=== PATIENT | female | born 1975 | race Caucasian/White ===

== ENCOUNTER 2016-12-16 11:32 | Emergency (ER) | payer OTHER ==
--- NOTE | 2016-12-16 12:13 | ED ---
General Adult HPI - General Chief complaint: Psychiatric Symptoms Stated complaint: Anxiety Time Seen by Provider: 12/16/16 12:03 Source: patient, RN notes reviewed Mode of arrival: EMS Limitations: no limitations - History of Present Illness Initial comments: Patient is a pleasant 41-year-old female presenting to the emergency Department with anxiety depression and suicidal thoughts. Patient had a bed episode of panic attack this morning. Patient had thoughts of self-harm. Patient is concerned she may time her self when something like this happens. No homicidal thoughts. No hallucinations. Patient has been previously hospitalized. Patient had to change off of her Effexor secondary to blood pressure issues. Patient felt like she did much better while on Effexor. No physical complaints. - Related Data Home Medications Medication Instructions Recorded Confirmed ALPRAZolam [Xanax] 1 mg PO TID 12/16/16 12/16/16 Albuterol Nebulized [Ventolin 2.5 mg INHALATION RT-Q6H PRN 12/16/16 12/16/16 Nebulized] Atenolol [Tenormin] 50 mg PO BID 12/16/16 12/16/16 Cholecalciferol [Vitamin D3] 1,000 unit PO DAILY 12/16/16 12/16/16 DULoxetine HCL [Cymbalta] 20 mg PO BID 12/16/16 12/16/16 Ibuprofen [Motrin] 600 mg PO TID PRN 12/16/16 12/16/16 OLANZapine [ZyPREXA] 5 mg PO HS 12/16/16 12/16/16 amLODIPine [Norvasc] 5 mg PO BID 12/16/16 12/16/16 cloNIDine HCL [Catapres] 0.1 mg PO BID 12/16/16 12/16/16 Allergies Allergy/AdvReac Type Severity Reaction Status Date / Time peanut Allergy Anaphylaxis Verified 12/16/16 11:54 Review of Systems ROS Statement: Those systems with pertinent positive or pertinent negative responses have been documented in the HPI. ROS Other: All systems not noted in ROS Statement are negative. Constitutional: Denies: fever Eyes: Denies: eye pain ENT: Denies: ear pain Respiratory: Denies: cough Cardiovascular: Denies: chest pain Endocrine: Denies: fatigue Gastrointestinal: Denies: abdominal pain Genitourinary: Denies: urgency Musculoskeletal: Denies: back pain Skin: Denies: rash Neurological: Denies: headache Psychiatric: Reports: anxiety, depression, suicidal thoughts. Denies: auditory hallucinations, visual hallucinations, homicidal thoughts Past Medical History Past Medical History: Hypertension Additional Past Medical History / Comment(s): depression History of Any Multi-Drug Resistant Organisms: None Reported Past Surgical History: Bariatric Surgery Additional Past Surgical History / Comment(s): lap band Past Psychological History: Depression Smoking Status: Current every day smoker Past Alcohol Use History: Rare Past Drug Use History: None Reported General Exam Limitations: no limitations General appearance: alert, in no apparent distress Head exam: Present: atraumatic Eye exam: Present: normal appearance, PERRL ENT exam: Present: normal oropharynx Neck exam: Present: normal inspection Respiratory exam: Present: normal lung sounds bilaterally Cardiovascular Exam: Present: regular rate, normal rhythm GI/Abdominal exam: Present: soft. Absent: tenderness Extremities exam: Present: normal inspection Neurological exam: Present: alert Psychiatric exam: Present: depressed Skin exam: Present: normal color Course Vital Signs 12/16/16 12/16/16 12/16/16 11:55 12:41 13:34 Temperature 97.8 F Pulse Rate 73 70 72 Respiratory 18 18 18 Rate Blood Pressure 145/81 117/77 134/80 O2 Sat by Pulse 97 99 100 Oximetry 12/16/16 12/16/16 15:00 17:37 Temperature Pulse Rate 76 82 Respiratory 18 18 Rate Blood Pressure 128/84 159/112 O2 Sat by Pulse 97 99 Oximetry Medical Decision Making - Medical Decision Making Patient was seen by mental health services who did arrange for follow-up on Monday. Patient reexamined. Patient contracts for safety. - Lab Data Lab Results 12/16/16 Range/Units 11:49 Urine Opiates Screen Detected H (NotDetected) Ur Oxycodone Screen Not Detected (NotDetected) Urine Methadone Screen Not Detected (NotDetected) Ur Propoxyphene Screen Not Detected (NotDetected) Ur Barbiturates Screen Not Detected (NotDetected) U Tricyclic Antidepress Not Detected (NotDetected) Ur Phencyclidine Scrn Not Detected (NotDetected) Ur Amphetamines Screen Not Detected (NotDetected) U Methamphetamines Scrn Not Detected (NotDetected) U Benzodiazepines Scrn Detected H (NotDetected) Urine Cocaine Screen Not Detected (NotDetected) U Marijuana (THC) Screen Not Detected (NotDetected) Disposition Clinical Impression: Acute anxiety Disposition: HOME SELF-CARE Condition: Stable Instructions: Anxiety (ED), Depression (ED), Suicide Prevention for Adults (ED) Additional Instructions: Please follow-up with mental health services Monday as directed. Please also follow-up with your doctor in the beginning of the week. Return for thoughts of self-harm, worsening symptoms or other concerns. Referrals: Ramone Miles MD [Primary Care Provider] - 1-2 days Time of Disposition: 18:19
[2016-12-16 18:36] VITALS: BP 137/97; PULSE 75; RESP 16; TEMP 97.1
== END 2016-12-16 18:35 | disposition home or self-care (01) ==
LOC: EC 11:32
DX: F41.9 Anxiety disorder, unspecified (principal); F32.9 Major depressive disorder, single episode, unspecified; I10 Essential (primary) hypertension; R45.851 Suicidal ideations; F17.200 Nicotine dependence, unspecified, uncomplicated; Z91.010 Allergy to peanuts; Z79.899 Other long term (current) drug therapy
CPT/HCPCS: 80306; 82075; 99285

== ENCOUNTER 2016-12-18 12:59 | Inpatient (IN) | payer MEDICAID, OTHER ==
--- NOTE | 2016-12-18 13:23 | ED ---
General Adult HPI - General Chief complaint: Psychiatric Symptoms Stated complaint: MENTAL HEALTH Time Seen by Provider: 12/18/16 13:00 Source: patient, EMS, RN notes reviewed Mode of arrival: EMS Limitations: no limitations - History of Present Illness Initial comments: This is a 41-year-old female who presents emergency department with past medical history significant for anxiety and comes in today because she has been having panic attacks and feels suicidal. Patient wants to take sharp piece of glass and cut herself. Patient states the panic attacks eventually go away but they come back again she cannot handle having so many panic attacks every day and feeling as though she can make herself. Patient states she's fearful that if she stays home she could have panic attack she's actually going to act on it. Patient states she did drink a little alcohol today but not too much. Patient denies any physical complaints today. Patient denies any homicidal ideations. denies any illegal drug use. Patient states she's panic attack started after her fiance killed himself on Mother's Day. Patient denies headache patient denies numbness weakness. Patient denies chest pain difficulty breathing shortness of breath. Patient denies abdominal pain patient denies nausea vomiting diarrhea. Patient denies any recent fever chills or cough. - Related Data Home Medications Medication Instructions Recorded Confirmed ALPRAZolam [Xanax] 1 mg PO TID 12/16/16 12/18/16 Albuterol Nebulized [Ventolin 2.5 mg INHALATION RT-Q6H PRN 12/16/16 12/18/16 Nebulized] Atenolol [Tenormin] 50 mg PO BID 12/16/16 12/18/16 Cholecalciferol [Vitamin D3] 1,000 unit PO DAILY 12/16/16 12/18/16 DULoxetine HCL [Cymbalta] 20 mg PO BID 12/16/16 12/18/16 Ibuprofen [Motrin] 600 mg PO TID PRN 12/16/16 12/18/16 OLANZapine [ZyPREXA] 5 mg PO HS 12/16/16 12/18/16 amLODIPine [Norvasc] 5 mg PO BID 12/16/16 12/18/16 cloNIDine HCL [Catapres] 0.1 mg PO BID 12/16/16 12/18/16 EPINEPHrine [Epipen 2-[place]] 0.3 mg IM ONCE PRN 12/18/16 12/18/16 Allergies Allergy/AdvReac Type Severity Reaction Status Date / Time peanut Allergy Anaphylaxis Verified 12/18/16 13:23 Review of Systems ROS Statement: Those systems with pertinent positive or pertinent negative responses have been documented in the HPI. ROS Other: All systems not noted in ROS Statement are negative. Past Medical History Past Medical History: Hypertension Additional Past Medical History / Comment(s): depression History of Any Multi-Drug Resistant Organisms: None Reported Past Surgical History: Bariatric Surgery Additional Past Surgical History / Comment(s): lap band Past Psychological History: Depression Smoking Status: Current every day smoker Past Alcohol Use History: Rare Past Drug Use History: None Reported General Exam - General Exam Comments Initial Comments: GENERAL: Patient is well-developed and well-nourished. Patient is nontoxic and well- hydrated and is in no acute distress. ENT: Neck is soft and supple. No significant lymphadenopathy is noted. Oropharynx is clear. Moist mucous membranes. Neck has full range of motion without eliciting any pain. EYES: The sclera were anicteric and conjunctiva were pink and moist. Extraocular movements were intact and pupils were equal round and reactive to light. Eyelids were unremarkable. PULMONARY: Unlabored respirations. Good breath sounds bilaterally. No audible rales rhonchi or wheezing was noted. CARDIOVASCULAR: There is a regular rate and rhythm without any murmurs gallops or rubs. ABDOMEN: Soft and nontender with normal bowel sounds. SKIN: Skin is clear with no lesions or rashes and otherwise unremarkable. NEUROLOGIC: Patient is alert and oriented x3. Cranial nerves II through XII are grossly intact. Motor and sensory are also intact. Normal speech, volume and content. Symmetrical smile. MUSCULOSKELETAL: Normal extremities with adequate strength and full range of motion. LYMPHATICS: No significant lymphadenopathy is noted PSYCHIATRIC: Patient states she is depressed and wants to kill herself. Limitations: no limitations Course Vital Signs 12/18/16 13:00 Temperature 97.8 F Pulse Rate 72 Respiratory 18 Rate Blood Pressure 128/84 O2 Sat by Pulse 99 Oximetry Medical Decision Making - Lab Data Lab Results 12/18/16 Range/Units 13:25 Urine Opiates Screen Detected H (NotDetected) Ur Oxycodone Screen Not Detected (NotDetected) Urine Methadone Screen Not Detected (NotDetected) Ur Propoxyphene Screen Not Detected (NotDetected) Ur Barbiturates Screen Detected H (NotDetected) U Tricyclic Antidepress Not Detected (NotDetected) Ur Phencyclidine Scrn Not Detected (NotDetected) Ur Amphetamines Screen Not Detected (NotDetected) U Methamphetamines Scrn Not Detected (NotDetected) U Benzodiazepines Scrn Detected H (NotDetected) Urine Cocaine Screen Not Detected (NotDetected) U Marijuana (THC) Screen Not Detected (NotDetected) Disposition Clinical Impression: Depression, Suicidal ideation Disposition: ADMITTED IP TO THIS HOSP Referrals: Ramone Miles MD [Primary Care Provider] - 1-2 days Time of Disposition: 15:30
[2016-12-18 17:52] VITALS: BMI 32.1
[2016-12-18] MEDS ORDERED: MAG HYDROX/AL HYDROX/SIMETH 30 ML CUP PO PRN (18:32)
[2016-12-18] MEDS ORDERED: ACETAMINOPHEN TAB 325 MG TAB PO PRN (18:32)
[2016-12-18] MEDS ORDERED: MAGNESIUM HYDROXIDE 2,400 MG/10 ML CUP PO PRN (18:32)
[2016-12-18] MEDS ORDERED: ALBUTEROL NEBULIZED 2.5 MG/3 ML INHALATION PRN (18:39)
[2016-12-18] MEDS: NICOTINE 21MG/24HR PATCH TRANSDERM SCH (19:13)
[2016-12-18] MEDS: OLANZapine 2.5 MG TAB PO PRN (19:42)
[2016-12-18] MEDS: ATENOLOL 50 MG TAB PO SCH (21:35)
[2016-12-18] MEDS: amLODIPine 5 MG TAB PO SCH (21:36)
[2016-12-18] MEDS: DULoxetine HCL 20 MG CAPSULE.DR PO SCH (21:36)
[2016-12-18] MEDS: OLANZapine 5 MG TAB PO SCH (21:36)
[2016-12-18] MEDS: cloNIDine HCL 0.1 MG TAB PO SCH (21:36)
[2016-12-18] MEDS: IBUPROFEN 600 MG TAB PO PRN (22:46)
[2016-12-19] MEDS: DULoxetine HCL 20 MG CAPSULE.DR PO SCH (09:12)
[2016-12-19] MEDS: amLODIPine 5 MG TAB PO SCH ×2 (09:12→21:41)
[2016-12-19] MEDS: NICOTINE 21MG/24HR PATCH TRANSDERM SCH (09:12)
[2016-12-19] MEDS: cloNIDine HCL 0.1 MG TAB PO SCH ×2 (09:12→21:41)
[2016-12-19] MEDS: ATENOLOL 50 MG TAB PO SCH ×2 (09:12→21:41)
[2016-12-19] MEDS: hydrOXYzine PAMOATE 25 MG CAP PO PRN ×2 (09:14→16:04)
[2016-12-19 09:53] LABS: Basophils % (A) 1 %; CHCM 32.7; Eosinophils # (A) 0.3 k/uL (0-0.7); Eosinophils % (A) 3 %; HDW 2.12; HGB 13.3 gm/dL (11.4-16.0); Luc # (Auto) 0.16; Luc % (Auto) 2; Lymphocytes # (A) 2.1 k/uL (1.0-4.8); Lymphocytes % (A) 26 %; MCH 30.8 pg (25.0-35.0); MCHC 32.3 g/dL (31.0-37.0); MCV 95.2 fL (80.0-100.0); Mean Platelet Volume 6.8; Monocytes # (A) 0.4 k/uL (0-1.0); Monocytes % (A) 5 %; Neutrophils # (A) 4.9 k/uL (1.3-7.7); Neutrophils % (A) 63 %; RBC 4.31 m/uL (3.80-5.40); RDW 14.1 % (11.5-15.5); WBC 7.9 k/uL (3.8-10.6); WBC (Perox) 7.81
--- NOTE | 2016-12-19 10:27 | P.HP ---
Psychiatric H&P - . H&P Date: 12/19/16 History & Physical: DATE OF SERVICE: 12/19/2016 IDENTIFYING DATA: This patient is a 41-year-old single female who was admitted to the mental health unit through emergency room. HISTORY OF PRESENT ILLNESS: The patient presents with "my panic attacks were really bad, and i want to , i want to escape, i almost smashed a glass and cut my wrist. Patient gives a disjointed convoluted history, beginning in mid October after her fiance committed suicide and she found him. She was admitted to [facility] for 24 hours and then transferred to [facility] where she spent 9 days there. States that they stopped all of her meds and discharged her on phenobarbital, Effexor 75 mg and Zyprexa. She was discharged on December 02 and went to see her primary care provider who restarted Xanax and Cymbalta continued the Zyprexa. She states that she was making no sense when she was at [facility] and [facility] and she thinks that's why they put her on phenobarbital. States that when she was seeing Dr. Tang told her that she frequently was psychotic. She said that she saw him for roughly 8 years she also received counseling for 2 of those years at [facility], and then she states she thinks she was doing well enough that he let her see her PCP for medication. She also mentions something about that since he worked here at [facility] and that she worked here that there were some sort of conflict of interest. Patient states that everything began in mid October when Valentin her fianc of 17 years , killed himself, and that she found him. She says that he was a heroin addict , that he was extremely controlling of her, cut her off from her mother as well as her friends. States that she has panic attacks that are so severe that she wants to , that this time not only did she want to she wanted to kill her self and that was why she came here. Describes what she thinks is the psychotic episodes that Dr. Tang mentioned she will become frightened cannot understand what is happening she'll run into traffic, hide in the corner, and people tell her she is making no sense. She says this began again soon after Valentin killed himself. She is unable to give a reliable history of what medicines she is taking, but her UDS was positive for opiates phenobarbital benzodiazepines. She said she drank possibly a third of a shot of liquor. Took an extra xanax yesterday, ~1-2. PAST PSYCHIATRIC HISTORY: Just released on December 02, from [facility]. [facility] 1 night, then 9 days at [place], placed on or continued on phenobarbital , Zyprexa, venlafaxine Reports 3 previous stays here, 1 [facility] when 20, [place] x[facility].. Past medications, says she has been on everything, welbutrin, risperidal, seroquel, effexor, xanax for years. at 14 dxd with depresseion, started drinking, says panic attacks at age 6, burned self as teen ager, started up again 6 months ago, then stopped, last time in may. picks at her skin PAST MEDICAL HISTORY: HTN. ALLERGIES: peanut. CHEMICAL DEPENDENCY HISTORY: ETOH will drink 1/3 of a shot when having a panic attack, has been abstinent a number of years. Viocodin, not prescribed, gets from family member. oscar had heroin, cocaine, syringes in the house FAMILY PSYCHIATRIC HISTORY: Mother, anxiety runs on both sides. 2 uncles committed suicide, 1 shot himself he was roller stitcher became paranoid for years. Last Aug other uncle with severe etoh, cannabis use killed himself, she says he never left the house. FAMILY CHEMICAL DEPENDENCY HISTORY:mother etoh, and all her sibs have used etoh and other drugs but those alive today are sober, 2 aunts on xanax. LEGAL HISTORY: Denies current, one DUI >10 years ago, 1 night, has her license. SOCIAL HISTORY: Spent alot of time with , parents fought they when pt was 18, brother was 10, mother left them and pt had to take care of her brother. Not talking to mother because Valentin did not like her, father in [place], returning, she lives with him. He has no psych problems. Never , no children GED, 96 credits [employer]. 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 MENTAL STATUS EXAM: Patient alert and oriented 3, no eye contact, sat in chair turned away, poorly groomed in hospital attire. Speech normal volume, rate and production. Coherent, logical and goal directed thought process. No SALIMA, no FOI. [No TB/TW/ TI] Denied auditory and visual hallucinations. Denied paranoid ideation, delusions or IOR. Memory [grossly intact] Cognition average Mood dysphoric, affect flat, congruent with mood. + suicidal ideation, denies homicidal ideation. Insight none; Judgment impaired . STRENGTHS: Has a house to live, possibly a supportive father . WEAKNESSES: No insight, abusing opiates from family member IMPRESSIONS: 41-year-old female with long history of mental illness that she predominantly identifies as anxiety, description of possible micro-psychotic episodes much like a borderline personality, has early history of self injurious behavior, that seems to fluctuate dependent upon the stressors. Today there is no evidence of hallucinations, but her behavior was odd in that she sat to the side of the chair rather than facing forward. She appeared to be anxious. Need to consider a mood disorder possibly bipolar disorder that is the cause of the anxiety and it is not being treated with the Xanax. Has had multiple trials of medications its unclear if anything has helped other than by her report of Xanax helping. She is suicidal. Anxiety, unspecified, rule out panic disorder. Depression, unspecified, rule out bipolar disorder. Rule out personality disorder, cluster B Sedative hypnotic use, severe PLAN: . Continue inpatient psychiatric admission, for safety, diagnostic clarification, and treatment. Suicide precautions and every 15 minutes. Discontinue Xanax Start clonazepam 2 mg twice a day with goal to taper off. Vistaril 25 mg 4 times a day when necessary anxiety Zyprexa 2.5 mg 4 times a day when necessary severe anxiety/psychosis Continue Zyprexa 5 mg at bedtime. Clarify outpatient medications, if on Effexor will likely discontinue that due to its effects on blood pressure Discontinue Cymbalta. 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 Encouraged her to attend groups. Allergies Allergy/AdvReac Type Severity Reaction Status Date / Time peanut Allergy Anaphylaxis Verified 12/18/16 18:10 Vital Signs Temp 98.0 F 12/19/16 07:04 Pulse 60 12/19/16 07:04 Resp 18 12/19/16 07:04 BP 125/88 12/19/16 07:04 Pulse Ox 100 12/18/16 17:16 Intake & Output 12/18/16 12/19/16 12/19/16 18:59 06:59 18:59 Weight 87.5 kg 87.5 kg Laboratory Last Values Urine Opiates Screen Detected (NotDetected) H 12/18/16 13:25 Ur Oxycodone Screen Not Detected (NotDetected) 12/18/16 13:25 Urine Methadone Screen Not Detected (NotDetected) 12/18/16 13:25 Ur Propoxyphene Screen Not Detected (NotDetected) 12/18/16 13:25 Ur Barbiturates Screen Detected (NotDetected) H 12/18/16 13:25 U Tricyclic Antidepress Not Detected (NotDetected) 12/18/16 13:25 Ur Phencyclidine Scrn Not Detected (NotDetected) 12/18/16 13:25 Ur Amphetamines Screen Not Detected (NotDetected) 12/18/16 13:25 U Methamphetamines Scrn Not Detected (NotDetected) 12/18/16 13:25 U Benzodiazepines Scrn Detected (NotDetected) H 12/18/16 13:25 Urine Cocaine Screen Not Detected (NotDetected) 12/18/16 13:25 U Marijuana (THC) Screen Not Detected (NotDetected) 12/18/16 13:25 12/19/16 08:44 States she is not safe. States she is had a "massive panic attack." Patient states "I feel suicidal." "I want to because I want to escape (the panic attack).Patient was in [facility] November 27 - .States she took her off effexor, seroquel and xanax . End 12/19/16 09:28 12/19/16 10:08
[2016-12-19] MEDS: OLANZapine 2.5 MG TAB PO PRN (10:30)
[2016-12-19 10:35] LABS: ALT 29 U/L (9-52); AST 18 U/L (14-36); Alkaline Phosphatase 55 U/L (38-126); Anion Gap 12 mmol/L; Blood Urea Nitrogen 9 mg/dL (7-17); Calcium 9.3 mg/dL (8.4-10.2); Carbon Dioxide 21 mmol/L (22-30); Chloride 101 mmol/L (98-107); Glucose 106 mg/dL (74-99); Non-African American GFR(MDRD) >60 (>60 ml/min/1.73 sqM); Potassium 4.5 mmol/L (3.5-5.1); Sodium 134 mmol/L (137-145); Total Bilirubin 0.6 mg/dL (0.2-1.3); Total Protein 7.7 g/dL (6.3-8.2)
[2016-12-19] MEDS: clonazePAM 1 MG TAB PO SCH ×2 (10:36→21:41)
[2016-12-19] MEDS: SERTRALINE 50 MG TAB PO SCH (12:34)
[2016-12-19] MEDS: CHOLECALCIFEROL 1,000 UNIT TAB PO SCH (12:34)
[2016-12-19] MEDS: IBUPROFEN 600 MG TAB PO PRN ×2 (12:35→21:40)
[2016-12-19] MEDS: OLANZapine 5 MG TAB PO SCH (21:41)
[2016-12-20] MEDS: hydrOXYzine PAMOATE 25 MG CAP PO PRN (07:54)
[2016-12-20] MEDS: NICOTINE 21MG/24HR PATCH TRANSDERM SCH (08:52)
[2016-12-20] MEDS: ATENOLOL 50 MG TAB PO SCH ×2 (08:53→20:39)
[2016-12-20] MEDS: clonazePAM 1 MG TAB PO SCH ×2 (08:53→20:39)
[2016-12-20] MEDS: cloNIDine HCL 0.1 MG TAB PO SCH ×2 (08:53→20:39)
[2016-12-20] MEDS: SERTRALINE 50 MG TAB PO SCH (08:53)
[2016-12-20] MEDS: amLODIPine 5 MG TAB PO SCH ×2 (08:54→20:39)
--- NOTE | 2016-12-20 10:08 | CONS ---
DATE OF SERVICE: 12/18/2016 CHIEF COMPLAINT: Major depression. HISTORY OF PRESENT ILLNESS: This is another admission for this 41-year-old white female who has been longstanding patient. She is admitted through the psych service for major depression and suicidal thoughts. At the present time she cannot be located on the floor and her assessment will be delayed. PIEDAD
[2016-12-20] MEDS: IBUPROFEN 600 MG TAB PO PRN ×2 (10:23→17:24)
[2016-12-20] MEDS: CHOLECALCIFEROL 1,000 UNIT TAB PO SCH (13:02)
[2016-12-20] MEDS ORDERED: SERTRALINE 50 MG TAB PO ONE (15:34)
--- NOTE | 2016-12-20 15:45 | P.PN ---
Progress Note - Text mINTERVERAL HISTORY: Discussed patient at team treatment meeting, review of record, and met with patient. Patient was in her room doing a crossword puzzle came to the office. Patient apologizes for how she was yesterday, stating "I was just really in a bad state yesterday, I slept really well last night and I feels so much better today". Patient states that she feels better, she had some anxiety yesterday she took PRN olanzapine twice, and Vistaril twice. We discussed the reasoning for this medication that she had reported a previous doctor had told her that she was psychotic at certain times, she also endorsed not being able to understand what was going on during those times. She says she wants to get her mood better she is still dysphoric, but her anxiety is down today. Patient also reports that she feels that her memory is better, worried that the Xanax was causing her problems MENTAL STATUS EXAM:Patient alert and oriented 3, good eye contact, fair groomed in hospital attire/street clothing. Speech normal volume, rate and production. Coherent, logical and goal directed thought process. No SALIMA, no FOI. [No TB/TW/ TI] Denied auditory and visual hallucinations. Denied paranoid ideation, delusions or IOR. Memory grossly intact Cognition average Mood dysphoric, affect and strict did, congruent with mood. Denies suicidal ideation, denies homicidal ideation. Insight partial; Judgment grossly intact for treatment purposes PLAN: Continue psychiatric hospital admission, for safety, and treatment purposes. Suicide precautions every 15 minute checks Continue clonazepam 2 mg twice a day, tomorrow most likely will reduce by 50%. Increase Zoloft to 100 mg every morning area did Increase olanzapine/Zyprexa to 7.5 mg daily at bedtime Continue to use olanzapine/Zyprexa when necessary for anxiety if Vistaril does not provide relief Milieu therapy
[2016-12-20] MEDS: OLANZapine 2.5 MG TAB PO SCH (20:40)
[2016-12-21] MEDS: SERTRALINE 100 MG TAB PO SCH (08:22)
[2016-12-21] MEDS: ATENOLOL 50 MG TAB PO SCH ×2 (08:22→21:01)
[2016-12-21] MEDS: clonazePAM 1 MG TAB PO SCH (08:22)
[2016-12-21] MEDS: NICOTINE 21MG/24HR PATCH TRANSDERM SCH (08:22)
[2016-12-21] MEDS: amLODIPine 5 MG TAB PO SCH ×2 (08:22→21:01)
[2016-12-21] MEDS: cloNIDine HCL 0.1 MG TAB PO SCH ×2 (08:22→21:00)
[2016-12-21] MEDS: CHOLECALCIFEROL 1,000 UNIT TAB PO SCH (11:50)
[2016-12-21] MEDS: IBUPROFEN 600 MG TAB PO PRN ×2 (11:50→19:21)
[2016-12-21] MEDS ORDERED: OLANZapine 2.5 MG TAB PO PRN (12:37)
--- NOTE | 2016-12-21 13:22 | P.PN ---
Progress Note - Text INTERVERAL HISTORY: Discussed patient at team treatment meeting, review of record, and met with patient. Patient was in hallway seated on couch reading a book. Reports that she again slept well last night, still is feeling depressed but believes that this is a normal emotion considering the loss of her fianc. She reports that she begins to get anxious around 2 or 3:00 in the afternoon states that she requested PRN but was told that it was not ordered for her. She she was given Vistaril and reported it helped a bit but that yesterday afternoon and evening was very difficult. We reviewed the treatment plan, including the reduction of the benzodiazepine. She is anxious about this but is also hopeful as she looks back and sees how she was so dependent upon Xanax, and that when she was in the [facility] that she was completely unaware of what was going on due to her panic and possible withdrawal. She says she wants to get her mood better she is still dysphoric, but her anxiety is down today. Patient also reports that she feels that her memory is better, worried that the Xanax was causing her problems MENTAL STATUS EXAM:Patient alert and oriented 3, good eye contact, poorly groomed in hospital attire. Speech normal volume, rate and production. Coherent, logical and goal directed thought process. No SALIMA, no FOI. [No TB/TW/ TI] Denied auditory and visual hallucinations. Denied paranoid ideation, delusions or IOR. Memory grossly intact Cognition average Mood dysphoric, affect and strict did, congruent with mood. Denies suicidal ideation, denies homicidal ideation. Insight partial; Judgment grossly intact for treatment purposes PLAN: Continue psychiatric hospital admission, for safety, and treatment purposes. Suicide precautions every 15 minute checks Continue clonazepam 2 mg twice a day, tomorrow will reduce by 50%. Continue Zoloft to 100 mg every morning Continue olanzapine/Zyprexa to 7.5 mg daily at bedtime Zyprexa 1.25 mg by mouth PRN for anxiety every 8 hours if Vistaril does not provide relief Milieu therapy
[2016-12-21] MEDS: OLANZapine 2.5 MG TAB PO SCH (21:01)
[2016-12-22] MEDS: IBUPROFEN 600 MG TAB PO PRN ×2 (07:42→19:08)
[2016-12-22] MEDS ORDERED: clonazePAM 1 MG TAB PO SCH (09:00)
[2016-12-22] MEDS: NICOTINE 21MG/24HR PATCH TRANSDERM SCH (09:05)
[2016-12-22] MEDS: ATENOLOL 50 MG TAB PO SCH ×2 (09:06→20:13)
[2016-12-22] MEDS: SERTRALINE 100 MG TAB PO SCH (09:06)
[2016-12-22] MEDS: amLODIPine 5 MG TAB PO SCH ×2 (09:07→20:13)
[2016-12-22] MEDS: cloNIDine HCL 0.1 MG TAB PO SCH ×2 (09:07→20:13)
[2016-12-22] MEDS: hydrOXYzine PAMOATE 25 MG CAP PO PRN ×2 (09:53→16:14)
--- NOTE | 2016-12-22 12:16 | CONS ---
CHIEF COMPLAINT: Major depression. HISTORY OF PRESENT ILLNESS: This is a lady who came in because of major and serious depression. Her fiance had a drug problem and killed himself this spring. She has had other issues over her life and came to the point where she was becoming severely depressed and suicidal. REVIEW OF SYSTEMS: She denies any headache, neurologic problems, change in vision or hearing, cough, shortness of breath, chest pain, heart disease, abdominal pain, vomiting, diarrhea, melena, hematochezia, jaundice, renal disease, diabetes, etc. Past medical history, family history and personal and social histories reveal that she smokes heavily and has COPD for which she takes Advair. She has been on bupropion 150 mg twice a day, Vicodin 7.5 occasionally, Seroquel 50 mg at bedtime, vitamin D, ibuprofen, Bentyl, Effexor XR 150 mg once a day, ProAir, Xanax 1 mg t.i.d. p.r.n. She does not drink. PHYSICAL EXAMINATION: Blood pressure is 130/90 with a pulse of 90, respirations 16. She is afebrile. GENERAL: She appeared to be slightly overweight in no acute distress. Skin color is normal and the skin is warm and dry. Head, ears, eyes, nose, mouth and throat were normal. Chest is clear. Cardiac exam is normal. ABDOMEN: Soft, no masses. EXTREMITIES: Normal. IMPRESSION: 1. Major depression. 2. History of nicotine abuse. RECOMMENDATIONS: None. MTDD
[2016-12-22] MEDS: CHOLECALCIFEROL 1,000 UNIT TAB PO SCH (12:23)
--- NOTE | 2016-12-22 14:26 | P.PN ---
Progress Note - Text INTERVERAL HISTORY: Discussed patient at team treatment meeting, review of record, and met with patient. Staff report yesterday she was in groups. Today she was in bed @2:00, reports not feeling well, anxious, took vistaril this morning and then olanzapine an hour later, felt it helped a little with anxiety. Not able to attend group yet this afternoon. Reports when she was in the hospital prior to this that they kept her medicated with Haldol to the point that she could not attend groups, states she is feeling better here that she has the ability to attend to groups with the medications that were giving her. Reports more depression today, heard that her fiancee might of not killed himself but that he had fentanyl in his system. Although this helps her a bit knowing that he might not have killed himself it causes increase of her depression related to losing him. Thoughts of her own life, reason for living, need to keep living are now again more present to her Reports that her sleep remains good. Her anxiety is up but she is still willing to continue taking other medications then benzodiazepine. MENTAL STATUS EXAM:Patient alert and oriented 3, good eye contact, poorly groomed in hospital attire. Speech normal volume, rate and production. Coherent, logical and goal directed thought process. No SALIMA, no FOI. [No TB/TW/ TI] Denied auditory and visual hallucinations. Denied paranoid ideation, delusions or IOR. Memory grossly intact Cognition average Mood dysphoric, affect constricted, congruent with mood. Denies suicidal ideation is thinking about life, reasons for living, denies homicidal ideation. Insight partial; Judgment grossly intact for treatment purposes PLAN: Continue psychiatric hospital admission, for safety, and treatment purposes. Suicide precautions every 15 minute checks Continue clonazepam 1 mg twice a day. If she can tolerate would like to reduce on Monday to 0.5mg BID Continue Zoloft to 100 mg every morning Continue olanzapine/Zyprexa to 7.5 mg daily at bedtime Zyprexa 1.25 mg by mouth PRN for anxiety every 4hours if Vistaril does not provide relief Milieu therapy
[2016-12-22] MEDS: OLANZapine 2.5 MG TAB PO PRN (18:21)
[2016-12-22] MEDS: OLANZapine 2.5 MG TAB PO SCH (20:13)
[2016-12-23] MEDS: NICOTINE 21MG/24HR PATCH TRANSDERM SCH (08:43)
[2016-12-23] MEDS: cloNIDine HCL 0.1 MG TAB PO SCH ×2 (08:44→21:30)
[2016-12-23] MEDS: ATENOLOL 50 MG TAB PO SCH ×2 (08:44→21:30)
[2016-12-23] MEDS: CHOLECALCIFEROL 1,000 UNIT TAB PO SCH (08:44)
[2016-12-23] MEDS: amLODIPine 5 MG TAB PO SCH ×2 (08:44→21:30)
[2016-12-23] MEDS: SERTRALINE 100 MG TAB PO SCH (08:44)
[2016-12-23 10:34] LABS: Appearance,Urine Clear (Clear); Bilirubin,Urine Negative (Negative); Glucose,Urine (UA) Negative (Negative); Ketones,Urine Negative (Negative); Leukocyte Esterase,Urine Negative (Negative); Nitrite,Urine Negative (Negative); PH, Urine 7.5 (5.0-8.0); Protein,Urine Negative (Negative); Specific Gravity,Urine 1.002 (1.001-1.035); UA Billing (MACRO vs. MICRO) CHEM; Urobilinogen,Urine <2.0 mg/dL (<2.0)
[2016-12-23] MEDS: hydrOXYzine PAMOATE 25 MG CAP PO PRN (10:59)
[2016-12-23] MEDS: IBUPROFEN 600 MG TAB PO PRN ×2 (11:00→22:19)
[2016-12-23] MEDS: OLANZapine 2.5 MG TAB PO PRN (12:06)
[2016-12-23] MEDS ORDERED: clonazePAM 1 MG TAB PO STA (15:21)
[2016-12-23] MEDS: OLANZapine 5 MG TAB PO SCH ×2 (16:59→21:30)
--- NOTE | 2016-12-23 17:36 | P.PN ---
Progress Note - Text DATE OF SERVICE: 12/23/2016 CHIEF COMPLAINT: The patient was admitted due to hopeless feelings, thoughts of suicide with impulse to cut her wrist, panic symptoms. She has acute stress response and grief relating to recent of fianc. INTERVAL HISTORY: The patient has been doing fair. She continues to struggle with her mood though she also has insight that much of what she is experiencing likely relates to grief and acute stress response related to of her fianc . She says she should be letting out her feelings. She attends groups and is appropriate. She does show struggles with mood in groups as well. She has been sleeping fairly well at night which she says is a big plus for her as she has chronic sleep disorder. Her Klonopin dose has been tapered. He says that she is very focused on staying off of Klonopin and any other habit-forming medications. She acknowledges a history of substance use problems. She hasn't had change in her general health. She tolerates her psychotropic medications. MENTAL STATUS EXAM: Patient had a disheveled appearance. Contact was fair. Psychomotor activity was somewhat restless. He answered questions appropriately. She was spontaneous and interactive. Her affect was anxious. Mood depressed. She was moderately distressed. ASSESSMENT: I will continue the current diagnosis and treatment plan. They her Klonopin will go down to a total daily dose of 1.5 mg. Tomorrow she will go down to 0.5 mg twice a day. Monday she will go down to 0.25 mg 3 times a day. I had an extensive discussion with the patient regarding withdrawal issues including the time course of withdrawal, what she is likely to experience through early withdrawal and means of managing withdrawal symptoms. I will increase her Zyprexa to 5 mg 3 times a day with the aim to help her reduce physiologic stress response as it relates to benzodiazepine withdrawal. We will continue to focus on stabilization and discharge planning.
[2016-12-23] MEDS ORDERED: clonazePAM 0.5 MG TAB PO ONE (21:00)
[2016-12-24] MEDS: NICOTINE 21MG/24HR PATCH TRANSDERM SCH (08:49)
[2016-12-24] MEDS: amLODIPine 5 MG TAB PO SCH ×2 (08:49→20:53)
[2016-12-24] MEDS: ATENOLOL 50 MG TAB PO SCH ×2 (08:49→20:53)
[2016-12-24] MEDS: cloNIDine HCL 0.1 MG TAB PO SCH ×2 (08:50→20:53)
[2016-12-24] MEDS: CHOLECALCIFEROL 1,000 UNIT TAB PO SCH (08:50)
[2016-12-24] MEDS: SERTRALINE 100 MG TAB PO SCH (08:50)
[2016-12-24] MEDS: clonazePAM 0.5 MG TAB PO SCH ×2 (08:50→20:53)
[2016-12-24] MEDS: OLANZapine 5 MG TAB PO SCH ×2 (08:50→20:53)
--- NOTE | 2016-12-24 12:33 | P.PN ---
Progress Note - Text Interval history: Patient seen in [facility] today for Dr. Camacho. She states that the Zyprexa at 5 mg 3 times a day is too sedating for her during the day. She verbalizes that her mood overall is feeling better but still some ups and downs and she is feeling kind of hopeless. Mental status exam: She is alert and cooperative with the interview. Her speech is fluent, not rapid or pressured. Thought processes organized. Her mood she describes overall is better but she is still feeling some ups and downs. She denies any thoughts of harm to self or others but relays some hopelessness. She is not verbalize any hallucinations or karthik delusions. She does not show any agitation. Plan: The Zyprexa will be changed to 2.5 mg in the a.m. and in the afternoon and then 5 mg at bedtime to minimize any daytime sedation. We'll continue to cover this patient for Dr. Camacho through the weekend. We'll continue to monitor her mood and monitor for any medication side effects.
[2016-12-24] MEDS: IBUPROFEN 600 MG TAB PO PRN ×2 (12:53→20:53)
[2016-12-24] MEDS: OLANZapine 2.5 MG TAB PO SCH (12:54)
[2016-12-24] MEDS: OLANZapine 2.5 MG TAB PO PRN (19:39)
[2016-12-25] MEDS: NICOTINE 21MG/24HR PATCH TRANSDERM SCH (09:04)
[2016-12-25] MEDS: SERTRALINE 100 MG TAB PO SCH (09:04)
[2016-12-25] MEDS: ATENOLOL 50 MG TAB PO SCH ×2 (09:04→20:59)
[2016-12-25] MEDS: cloNIDine HCL 0.1 MG TAB PO SCH ×2 (09:04→20:59)
[2016-12-25] MEDS: OLANZapine 2.5 MG TAB PO SCH ×2 (09:04→13:54)
[2016-12-25] MEDS: clonazePAM 0.5 MG TAB PO SCH ×2 (09:05→21:01)
[2016-12-25] MEDS: amLODIPine 5 MG TAB PO SCH ×2 (09:06→20:59)
[2016-12-25] MEDS: CHOLECALCIFEROL 1,000 UNIT TAB PO SCH (11:11)
[2016-12-25] MEDS: hydrOXYzine PAMOATE 25 MG CAP PO PRN (11:11)
--- NOTE | 2016-12-25 14:22 | P.PN ---
Progress Note - Text Interval history: Patient seen in cross coverage today for Dr. Camacho. She states that she did sleep better last night. She states that she would like to keep the Zyprexa at the lower dose. She does describe feeling depressed today. She seems to relay her anxiety level is manageable. Mental status exam: She is alert and cooperative with the interview. Her speech is fluent, not rapid or pressured. Thought processes are organized. Her mood she describes is depressed today. She denies any thoughts of harm to self or others. She denies any hallucinations. She does not make any delusional statements. There is no agitation present. Plan: We'll maintain current psychotropic medications. We'll monitor for any medication side effects monitor her ongoing response. Dr. Camacho will resume care this patient starting tomorrow.
[2016-12-25] MEDS: IBUPROFEN 600 MG TAB PO PRN ×2 (14:31→21:01)
[2016-12-25] MEDS: OLANZapine 2.5 MG TAB PO PRN (19:04)
[2016-12-25] MEDS: OLANZapine 5 MG TAB PO SCH (20:59)
[2016-12-26] MEDS: ATENOLOL 50 MG TAB PO SCH ×2 (08:09→21:30)
[2016-12-26] MEDS: amLODIPine 5 MG TAB PO SCH ×2 (08:09→21:30)
[2016-12-26] MEDS: NICOTINE 21MG/24HR PATCH TRANSDERM SCH (08:09)
[2016-12-26] MEDS: cloNIDine HCL 0.1 MG TAB PO SCH ×2 (08:10→21:30)
[2016-12-26] MEDS: clonazePAM 0.5 MG TAB PO SCH (08:10)
[2016-12-26] MEDS: OLANZapine 2.5 MG TAB PO SCH ×2 (08:10→16:03)
[2016-12-26] MEDS: SERTRALINE 100 MG TAB PO SCH (08:10)
[2016-12-26] MEDS: IBUPROFEN 600 MG TAB PO PRN ×2 (09:21→22:44)
[2016-12-26] MEDS: hydrOXYzine PAMOATE 25 MG CAP PO PRN ×2 (09:22→14:49)
[2016-12-26] MEDS: OLANZapine 2.5 MG TAB PO PRN ×2 (10:50→17:42)
[2016-12-26] MEDS: CHOLECALCIFEROL 1,000 UNIT TAB PO SCH (12:22)
--- NOTE | 2016-12-26 14:36 | P.PN ---
Progress Note - Text INTERVERAL HISTORY: Patient was discussed in treatment team meeting, review of record, met with patient. Staff reports that patient has been having significant issues related to anxiety , isolating, and mood swings. Patient reports that she's not feeling very well, anxious, paranoid, fear of having a panic attack. States that she had initially complained about being too sleepy with the dose of olanzapine at bedtime and it was changed to have her take it 2 times during the day but doesn't think that's helpful now. Describes her paranoia as fear of having another panic attack. We discussed the fact that the change in her medications will be difficult but that the additional olanzapine should help to deal with some of it, but not all of it. She says she understood and that the doctor before made told her that it could be up to 6 months before she'll feel back to normal. Reports she did not sleep well last night. Reports she has suicidal thoughts. Still agreeing to have the benzodiazepines discontinued she took 1 this morning and will discontinue tonight. MENTAL STATUS EXAM: Patient is alert and cooperative, frequently looking down at the floor, appearing anxious. Denies voices. Thoughts of suicide without a plan. PLAN: Continue inpatient psychiatric admission, safety purposes and treatment. Increase olanzapine 10 mg at bedtime. Discontinue to daytime doses. Continue 1.25 mg every 4 hours as needed. Discussed possible discharge tomorrow, patient agreeable.
[2016-12-26] MEDS ORDERED: OLANZapine 10 MG TAB PO SCH (21:00)
[2016-12-27 06:45] VITALS: TEMP 97.6
[2016-12-27] MEDS ORDERED: clonazePAM 1 MG TAB PO SCH (09:00)
[2016-12-27] MEDS: ATENOLOL 50 MG TAB PO SCH (09:32)
[2016-12-27] MEDS: cloNIDine HCL 0.1 MG TAB PO SCH (09:32)
[2016-12-27] MEDS: SERTRALINE 100 MG TAB PO SCH (09:32)
[2016-12-27] MEDS: amLODIPine 5 MG TAB PO SCH (09:32)
[2016-12-27] MEDS: NICOTINE 21MG/24HR PATCH TRANSDERM SCH (09:32)
[2016-12-27 09:36] VITALS: BP 131/77; PULSE 98; RESP 18
[2016-12-27] MEDS: CHOLECALCIFEROL 1,000 UNIT TAB PO SCH (12:27)
[2016-12-27] MEDS: IBUPROFEN 600 MG TAB PO PRN (12:30)
[2016-12-27] MEDS: hydrOXYzine PAMOATE 25 MG CAP PO PRN (14:21)
--- NOTE | 2016-12-27 14:29 | P.DS ---
Providers Date of admission: 12/18/16 16:40 Expected date of discharge: 12/27/16 Attending physician: Queenie Camacho MD Consults: 12/18/16 18:32 Consult Physician Routine Consulting Provider: Ramone Miles Consult Reason/Comments: H and P and medical management Do you want consulting provider notified?: Yes Primary care physician: Ramone Miles Hospital Course: BRIEF ADMISSION HISTORY: She was admitted to the mental health unit through the emergency room on a voluntary admission. She brought herself to the hospital due to having panic attacks she reports that when she has a panic attack she becomes confused unable to think and then this leads to paranoia and then suicide ideation initially she gave a convoluted history that was hard to understand and follow. But eventually it was discovered that she had been just recently discharged from psychiatric hospital for 9 days. She was suicidal and depressed at that point due to her fianc committing suicide and she found him. According to her they stopped all of her medications including Xanax and she was discharged on phenobarbital Zyprexa and Effexor after discharge she saw her primary care who restarted Xanax and Cymbalta and Zyprexa. HOSPITAL COURSE: As stated above it was difficult to understand her her thought process was a bit disorganized but her primary complaint was just anxiety paranoia and suicidal ideation. We switched her Xanax to clonazepam with the ultimate goal of being able to stop benzodiazepines. Her past history did support the use of an atypical antipsychotic due to the confusion and paranoia that she reports associated to panic attacks. It's unclear what comes first after about 2 days she began to appear less anxious and less paranoid we did begin a slow taper of benzodiazepine but over the weekend she began to sink again into more paranoia with some suicidal ideation returning. We discontinued Effexor due to her high blood pressure. We also discontinued Cymbalta. We started sertraline/Zoloft 100 mg for depression We restarted her clonazepam 1 mg twice a day. We raised her Zyprexa to equal the amount of when necessary's that she was taking during the day, she is now taking 10 mg at bedtime. We also used Vistaril for anxiety. She has vague periods of suicide but no plan. She is stable for discharge. ADMISSION DIAGNOSES Anxiety, unspecified, rule out panic disorder Depression, unspecified rule out bipolar disorder Rule out personality disorder, cluster B Sedative hypnotic use, severe DISCHARGE DIAGNOSES Anxiety disorder, unspecified Depression, unspecified Sedative hypnotic use, severe PLAN: Discharge today, father will hot die picker and there will be a family meeting at that time. I discussed with patient the concern of using benzodiazepine long-term/chronic, she also has a history of using opiates although I believe those are prescribed. She was agreeable to continue the slow titration of benzodiazepine. Recommend that she stay on clonazepam 1 mg twice a day for 2 weeks, then reduce dosage by 0.5 for 2 weeks, another reduction by 0.5 for 2 weeks and then reduce by 0.25 mg for 2 weeks and continue to reduce until no longer taking. She agreed Olanzapine/Zyprexa 10 mg daily at bedtime Hydroxyzine/Vistaril 25 mg 4 times a day when necessary severe anxiety [facility] appointment. Pertinent Studies: nonr Procedures: nonr Patient Condition at Discharge: Stable Plan - Discharge Summary New Discharge Prescriptions: New clonazePAM [KlonoPIN] 1 mg PO BID #60 tab hydrOXYzine PAMOATE [Vistaril] 25 mg PO Q6HR PRN #90 cap PRN Reason: Anxiety OLANZapine [ZyPREXA] 10 mg PO HS #30 tab Sertraline [Zoloft] 100 mg PO DAILY #30 tab Continue cloNIDine HCL [Catapres] 0.1 mg PO BID Cholecalciferol [Vitamin D3] 1,000 unit PO DAILY amLODIPine [Norvasc] 5 mg PO BID Ibuprofen [Motrin] 600 mg PO TID PRN PRN Reason: Pain Atenolol [Tenormin] 50 mg PO BID Albuterol Nebulized [Ventolin Nebulized] 2.5 mg INHALATION RT-Q6H PRN PRN Reason: Shortness Of Breath EPINEPHrine [Epipen 2-[place]] 0.3 mg IM ONCE PRN PRN Reason: Anaphylaxis Discontinued OLANZapine [ZyPREXA] 5 mg PO HS DULoxetine HCL [Cymbalta] 20 mg PO BID ALPRAZolam [Xanax] 1 mg PO TID Discharge Medication List Albuterol Nebulized [Ventolin Nebulized] 2.5 mg INHALATION RT-Q6H PRN 12/16/16 [ History] Atenolol [Tenormin] 50 mg PO BID 12/16/16 [History] Cholecalciferol [Vitamin D3] 1,000 unit PO DAILY 12/16/16 [History] Ibuprofen [Motrin] 600 mg PO TID PRN 12/16/16 [History] amLODIPine [Norvasc] 5 mg PO BID 12/16/16 [History] cloNIDine HCL [Catapres] 0.1 mg PO BID 12/16/16 [History] EPINEPHrine [Epipen 2-[place]] 0.3 mg IM ONCE PRN 12/18/16 [History] OLANZapine [ZyPREXA] 10 mg PO HS #30 tab 12/27/16 [Rx] Sertraline [Zoloft] 100 mg PO DAILY #30 tab 12/27/16 [Rx] clonazePAM [KlonoPIN] 1 mg PO BID #60 tab 12/27/16 [Rx] hydrOXYzine PAMOATE [Vistaril] 25 mg PO Q6HR PRN #90 cap 12/27/16 [Rx] Follow up Appointment(s)/Referral(s): [facility] [Outside] - 12/28/16 3:00 pm (Ramone Devries MD [Primary Care Provider] - 1-2 days
== END 2016-12-27 17:26 | disposition home or self-care (01) | DRG 880 ==
LOC: EC 12:59 → 3MHU 16:40
PROVIDERS: ADMIT Psychiatry & Neurology Addiction Medicine; ATTEND Psychiatry & Neurology Addiction Medicine
PROC: HZ2ZZZZ Detoxification Services for Substance Abuse Treatment (ICD-10-PCS; principal; 2016-12-18)
DX: F41.0 Panic disorder [episodic paroxysmal anxiety] (principal); R45.851 Suicidal ideations; F22 Delusional disorders; F13.239 Sedative, hypnotic or anxiolytic dependence with withdrawal, unspecified; F11.10 Opioid abuse, uncomplicated; G47.9 Sleep disorder, unspecified; F60.9 Personality disorder, unspecified; F32.9 Major depressive disorder, single episode, unspecified; F41.9 Anxiety disorder, unspecified; J44.9 Chronic obstructive pulmonary disease, unspecified; E66.3 Overweight; I10 Essential (primary) hypertension; F17.200 Nicotine dependence, unspecified, uncomplicated; Z91.5 Personal history of self-harm; Z79.899 Other long term (current) drug therapy; Z91.010 Allergy to peanuts; Z71.3 Dietary counseling and surveillance; Z98.84 Bariatric surgery status; Z79.1 Long term (current) use of non-steroidal anti-inflammatories (NSAID); Z79.891 Long term (current) use of opiate analgesic; Z79.51 Long term (current) use of inhaled steroids; Z81.1 Family history of alcohol abuse and dependence; Z81.3 Family history of other psychoactive substance abuse and dependence; Z81.8 Family history of other mental and behavioral disorders; Z71.51 Drug abuse counseling and surveillance of drug abuser; Z63.4 Disappearance and death of family member
CPT/HCPCS: 80053; 80306; 81003; 81025; 82075; 84443; 85025; 99285

== ENCOUNTER 2016-12-27 18:56 | Emergency (ER) | payer OTHER ==
[2016-12-27 19:22] VITALS: RESP 18; TEMP 97.3
[2016-12-27] MEDS ORDERED: amLODIPine 5 MG TAB PO STA (19:35)
[2016-12-27] MEDS ORDERED: ATENOLOL 50 MG TAB PO STA (19:35)
[2016-12-27 19:57] LABS: Appearance,Urine Clear (Clear); Bilirubin,Urine Negative (Negative); Glucose,Urine (UA) Negative (Negative); Ketones,Urine Negative (Negative); Leukocyte Esterase,Urine Negative (Negative); Nitrite,Urine Negative (Negative); PH, Urine 6.5 (5.0-8.0); Protein,Urine Negative (Negative); Specific Gravity,Urine 1.001 (1.001-1.035); UA Billing (MACRO vs. MICRO) CHEM; Urobilinogen,Urine <2.0 mg/dL (<2.0)
[2016-12-27] MEDS: cloNIDine HCL 0.1 MG TAB PO STA ×2 (20:11→22:45)
--- NOTE | 2016-12-27 20:15 | ED ---
General Adult HPI - General Chief complaint: Psychiatric Symptoms Stated complaint: Panic Attack Time Seen by Provider: 12/27/16 19:07 Source: patient Mode of arrival: ambulatory Limitations: no limitations - History of Present Illness Initial comments: Patient is a 41-year-old female with extensive psychiatric history who presents to the emergency department this evening for evaluation of panic attack and thoughts of self-harm. I hospitalized in our mental health unit from December 18 until approximately 6 PM today at which time after a family meeting she was discharged home. Patient reports she was discharged around 6 PM, upon walking to the parking lot and sitting in her brother's car she began having a panic attack. She states she took 1 Klonopin and remained in the car for 1 hour but feels as though she is very paranoid, she is having thoughts of harming herself and doesn't feel safe going home. Patient does have a past medical history of self-harm including self-inflicted mascorro. Today she states she has no specific plan to hurt herself but is scared that if she is left alone or if she goes home she will hurt herself. Patient's recent psychiatric history is very complicated she was hospitalized at an outside hospital in November at which time she was weaned off of benzodiazepines and narcotic medications. She reports her psychiatric medications were changed. She was discharged home for a short while and then came to our facility for reevaluation. Patient states there've been multiple changes to her medications in the past 2 months and during this time she's also been diagnosed with hypertension and started on multiple antihypertensive medications. Patient states that she was previously treated with Effexor which was very effective for her. She states that she has no longer on this and feels like she should've stayed on that medication. - Related Data Home Medications Medication Instructions Recorded Confirmed Albuterol Nebulized [Ventolin 2.5 mg INHALATION RT-Q6H PRN 12/16/16 12/27/16 Nebulized] Atenolol [Tenormin] 50 mg PO BID 12/16/16 12/27/16 Cholecalciferol [Vitamin D3] 1,000 unit PO DAILY 12/16/16 12/27/16 Ibuprofen [Motrin] 600 mg PO TID PRN 12/16/16 12/27/16 amLODIPine [Norvasc] 5 mg PO BID 12/16/16 12/27/16 cloNIDine HCL [Catapres] 0.1 mg PO BID 12/16/16 12/27/16 EPINEPHrine [Epipen 2-[place]] 0.3 mg IM ONCE PRN 12/18/16 12/27/16 Previous Rx's Medication Instructions Recorded OLANZapine [ZyPREXA] 10 mg PO HS #30 tab 12/27/16 Sertraline [Zoloft] 100 mg PO DAILY #30 tab 12/27/16 clonazePAM [KlonoPIN] 1 mg PO BID #60 tab 12/27/16 hydrOXYzine PAMOATE [Vistaril] 25 mg PO Q6HR PRN #90 cap 12/27/16 Allergies Allergy/AdvReac Type Severity Reaction Status Date / Time peanut Allergy Anaphylaxis Verified 12/27/16 19:18 Review of Systems ROS Statement: Those systems with pertinent positive or pertinent negative responses have been documented in the HPI. ROS Other: All systems not noted in ROS Statement are negative. Constitutional: Denies: fever, chills Eyes: Denies: vision change ENT: Denies: throat pain, congestion Respiratory: Denies: cough, dyspnea Cardiovascular: Reports: palpitations. Denies: chest pain Endocrine: Denies: fatigue Gastrointestinal: Reports: nausea. Denies: abdominal pain, vomiting Genitourinary: Denies: urgency, dysuria, abnormal menses Musculoskeletal: Denies: back pain Skin: Denies: rash, lesions Neurological: Denies: headache Psychiatric: Reports: anxiety, depression, other (Thoughts of self-harm). Denies: auditory hallucinations, visual hallucinations, homicidal thoughts, suicidal thoughts Past Medical History Past Medical History: Hypertension Additional Past Medical History / Comment(s): depression History of Any Multi-Drug Resistant Organisms: None Reported Past Surgical History: Bariatric Surgery Additional Past Surgical History / Comment(s): lap band Past Anesthesia/Blood Transfusion Reactions: No Reported Reaction Past Psychological History: Anxiety, Depression Smoking Status: Current every day smoker Past Alcohol Use History: Daily Past Drug Use History: None Reported, Prescription Drug Abuse General Exam Limitations: no limitations General appearance: alert, anxious, obese, other (Hirsute) Head exam: Present: atraumatic, normocephalic, normal inspection Eye exam: Present: normal appearance, PERRL, EOMI. Absent: scleral icterus, conjunctival injection, periorbital swelling ENT exam: Present: normal exam, mucous membranes moist Neck exam: Present: normal inspection. Absent: tenderness, meningismus, lymphadenopathy Respiratory exam: Present: normal lung sounds bilaterally. Absent: respiratory distress, wheezes, rales, rhonchi, stridor Cardiovascular Exam: Present: regular rate, normal rhythm, normal heart sounds. Absent: systolic murmur, diastolic murmur, rubs, gallop, clicks GI/Abdominal exam: Present: soft, normal bowel sounds. Absent: distended, tenderness, guarding, rebound, rigid Rectal exam: Present: deferred Extremities exam: Present: normal inspection, full ROM, normal capillary refill. Absent: tenderness, pedal edema, joint swelling, calf tenderness Back exam: Present: normal inspection Neurological exam: Present: alert, oriented X3, CN II-XII intact Psychiatric exam: Present: depressed, agitated, anxious Skin exam: Present: warm, dry, intact, normal color. Absent: rash Course Vital Signs 12/27/16 12/27/16 19:10 22:51 Temperature 97.3 F L Pulse Rate 77 71 Respiratory 18 Rate Blood Pressure 160/104 164/105 O2 Sat by Pulse 98 Oximetry Medical Decision Making - Medical Decision Making Patient was seen and evaluated, vital signs were reviewed - patient was noted to be hypertensive History was obtained from patient and review of medical record Labs were ordered Patient's home oral antihypertensives were ordered Mental health unit was notified of patient's presence in the emergency department Patient's blood pressure improved prior to oral medications, Norvasc and Lopressor were given, Catapres was held due to improvement in blood pressure Patient was evaluated by the psychiatry social director. Restates the patient vehemently denied any thoughts of self-harm or suicide. Patient was insistent that she was having a panic attack. dry house worker recommended that the patient be discharged home as there is no indication for hospitalization for an acute anxiety attack, especially considering that the patient just underwent a 9 day hospitalization was evaluated and cleared by psychiatry earlier today. She advised that the patient should follow-up with her psychiatrist as scheduled tomorrow. This plan was discussed with the patient who is agreeable to discharge home with and for follow-up with psychiatry as scheduled tomorrow. All questions pertaining to care were answered to the best my ability and the patient was discharged home in condition. Upon preparing to leave the ER patient states she was beginning to feel panicked again, however she did not have any thoughts of self-harm or suicide. I advised the patient to remain calm and take slow deep breaths while she was feeling this anxiety. Patient was able to do so and was discharged home. - Lab Data Lab Results 12/27/16 12/27/16 Range/Units 19:34 19:34 Urine Color Colorless Urine Appearance Clear (Clear) Urine pH 6.5 (5.0-8.0) Ur Specific [place] 1.001 (1.001-1.035) Urine Protein Negative (Negative) Urine Glucose (UA) Negative (Negative) Urine Ketones Negative (Negative) Urine Blood Negative (Negative) Urine Nitrite Negative (Negative) Urine Bilirubin Negative (Negative) Urine Urobilinogen <2.0 (<2.0) mg/dL Ur Leukocyte Esterase Negative (Negative) Urine HCG, Qual Not Detected (Not Detectd) Disposition Clinical Impression: Anxiety disorder Disposition: HOME SELF-CARE Condition: Good Instructions: Panic Attack (ED) Referrals: Ramone Miles MD [Primary Care Provider] - 1-2 days
[2016-12-27 22:52] VITALS: BP 164/105; PULSE 71
== END 2016-12-27 22:54 | disposition home or self-care (01) ==
LOC: EC 18:56
DX: F41.9 Anxiety disorder, unspecified (principal); F17.200 Nicotine dependence, unspecified, uncomplicated; I10 Essential (primary) hypertension; Z79.899 Other long term (current) drug therapy; Z91.010 Allergy to peanuts
CPT/HCPCS: 81003; 81025; 82075; 99284

== ENCOUNTER 2017-01-11 12:30 | Emergency (ER) | payer OTHER ==
[2017-01-11 12:39] VITALS: BP 110/69; PULSE 64; RESP 18; TEMP 97.6
--- NOTE | 2017-01-11 12:49 | ED ---
General Adult HPI - General Chief complaint: Psychiatric Symptoms Stated complaint: Mental Health Time Seen by Provider: 01/11/17 12:40 Source: patient, EMS, RN notes reviewed Mode of arrival: EMS Limitations: no limitations - History of Present Illness Initial comments: Patient 41-year-old female who presents emergency room today with chief complaint of increased paranoia and suicidal ideation. Patient does admit that she was recently admitted discharged home. She states this is that time she's not been out of her house much. She does admit that she's having increased thoughts of paranoia. Does admit that she's having increased thoughts of hurting herself. Denies any specific plan. Patient denies any homicidal thoughts or plans. She denies any other physical complaints here in the emergency room. Patient denies any recent fever, chills, shortness of breath, chest pain, back pain, abdominal pain, nausea or vomiting, numbness or tingling , dysuria or hematuria, constipation or diarrhea, headaches or visual changes, or any other complaints. - Related Data Home Medications Medication Instructions Recorded Confirmed Albuterol Nebulized [Ventolin 2.5 mg INHALATION RT-Q6H PRN 12/16/16 01/11/17 Nebulized] Atenolol [Tenormin] 50 mg PO BID 12/16/16 01/11/17 Cholecalciferol [Vitamin D3] 1,000 unit PO DAILY 12/16/16 01/11/17 Ibuprofen [Motrin] 600 mg PO TID PRN 12/16/16 01/11/17 amLODIPine [Norvasc] 5 mg PO BID 12/16/16 01/11/17 cloNIDine HCL [Catapres] 0.1 mg PO BID 12/16/16 01/11/17 EPINEPHrine [Epipen 2-[place]] 0.3 mg IM ONCE PRN 12/18/16 01/11/17 Previous Rx's Medication Instructions Recorded OLANZapine [ZyPREXA] 10 mg PO HS #30 tab 12/27/16 Sertraline [Zoloft] 100 mg PO DAILY #30 tab 12/27/16 clonazePAM [KlonoPIN] 1 mg PO BID #60 tab 12/27/16 hydrOXYzine PAMOATE [Vistaril] 25 mg PO Q6HR PRN #90 cap 12/27/16 Allergies Allergy/AdvReac Type Severity Reaction Status Date / Time peanut Allergy Anaphylaxis Verified 01/11/17 13:06 Review of Systems ROS Statement: Those systems with pertinent positive or pertinent negative responses have been documented in the HPI. ROS Other: All systems not noted in ROS Statement are negative. Past Medical History Past Medical History: Hypertension Additional Past Medical History / Comment(s): depression History of Any Multi-Drug Resistant Organisms: None Reported Past Surgical History: Bariatric Surgery Additional Past Surgical History / Comment(s): lap band Past Anesthesia/Blood Transfusion Reactions: No Reported Reaction Past Psychological History: Anxiety, Depression Smoking Status: Current every day smoker Past Alcohol Use History: Daily Past Drug Use History: None Reported, Prescription Drug Abuse General Exam - General Exam Comments Initial Comments: General: The patient is awake and alert, in no distress, and does not appear acutely ill. Eye: Pupils are equal, round and reactive to light, extra-ocular movements are intact. No nystagmus. There is normal conjunctiva bilaterally. No signs of icterus. Ears, nose, mouth and throat: There are moist mucous membranes and no oral lesions. Neck: The neck is supple, there is no tenderness or JVD. Cardiovascular: There is a regular rate and rhythm. No murmur, rub or gallop is appreciated. Respiratory: Lungs are clear to auscultation, respirations are non-labored, breath sounds are equal. No wheezes, stridor, rales, or rhonchi. Musculoskeletal: Normal ROM, no tenderness. Strength 5/5. Sensation intact. Pulses equal bilaterally 2+. Neurological: A&O x 3. CN II-XII intact, There are no obvious motor or sensory deficits. Coordination appears grossly intact. Speech is normal. Skin: Skin is warm and dry and no rashes or lesions are noted. Psychiatric: Cooperative, appropriate mood & affect, normal judgment. Limitations: no limitations Course Vital Signs 01/11/17 12:35 Temperature 97.6 F Pulse Rate 64 Respiratory 18 Rate Blood Pressure 110/69 O2 Sat by Pulse 98 Oximetry Medical Decision Making - Medical Decision Making Patient's been examined here in the emergency room by mental health. They recommend that patient can be discharged home. She has no suicidal thoughts or plans. [facility] will be following up with the patient tomorrow at her home to take her to her appointment. - Lab Data Lab Results 08/02/17 08/02/17 Range/Units 12:43 12:43 Urine HCG, Qual Not Detected (Not Detectd) Urine Opiates Screen Not Detected (NotDetected) Ur Oxycodone Screen Not Detected (NotDetected) Urine Methadone Screen Not Detected (NotDetected) Ur Propoxyphene Screen Not Detected (NotDetected) Ur Barbiturates Screen Not Detected (NotDetected) U Tricyclic Antidepress Not Detected (NotDetected) Ur Phencyclidine Scrn Not Detected (NotDetected) Ur Amphetamines Screen Not Detected (NotDetected) U Methamphetamines Scrn Not Detected (NotDetected) U Benzodiazepines Scrn Not Detected (NotDetected) Urine Cocaine Screen Not Detected (NotDetected) U Marijuana (THC) Screen Not Detected (NotDetected) Disposition Clinical Impression: Depression Disposition: HOME SELF-CARE Condition: Good Instructions: Depression (ED) Additional Instructions: Please follow-up with community mental health as discussed here in the emergency room. Please return here to the emergency room if the symptoms increase or worsen or for any other concerns. Referrals: Ramone Miles MD [Primary Care Provider] - 1-2 days Time of Disposition: 14:34
== END 2017-01-11 14:54 | disposition home or self-care (01) ==
LOC: EC 12:30
DX: F32.9 Major depressive disorder, single episode, unspecified (principal); I10 Essential (primary) hypertension; F17.200 Nicotine dependence, unspecified, uncomplicated; Z91.010 Allergy to peanuts; Z79.899 Other long term (current) drug therapy
CPT/HCPCS: 80306; 81025; 82075; 99285

== ENCOUNTER → 2020-12-28 | Outpatient (CLI) | payer OTHER ==
[2020-12-28 15:32] LABS: Anisocytosis Slight; Basophils % (A) 1 %; Eosinophils # (A) 0.3 k/uL (0-0.7); Eosinophils % (A) 3 %; HGB 13.4 gm/dL (11.4-16.0); Lymphocytes # (A) 2.4 k/uL (1.0-4.8); Lymphocytes % (A) 27 %; MCH 30.7 pg (25.0-35.0); MCHC 32.7 g/dL (31.0-37.0); Mean Platelet Volume 7.1; Monocytes # (A) 0.5 k/uL (0-1.0); Monocytes % (A) 6 %; Neutrophils # (A) 5.3 k/uL (1.3-7.7); Neutrophils % (A) 60 %; Platelet Count 440 k/uL (150-450); RBC 4.37 m/uL (3.80-5.40); RDW 16.3 % (11.5-15.5); WBC 8.8 k/uL (3.8-10.6)
[2020-12-28 15:45] LABS: ALT 45 U/L (4-34); AST 42 U/L (14-36); African American GFR (CKD) >90 (>60 ml/min/1.73 sqM); Albumin 4.2 g/dL (3.5-5.0); Alkaline Phosphatase 105 U/L (38-126); Anion Gap 10 mmol/L; Blood Urea Nitrogen 10 mg/dL (7-17); Calcium 9.3 mg/dL (8.4-10.2); Carbon Dioxide 22 mmol/L (22-30); Chloride 107 mmol/L (98-107); Glucose 96 mg/dL (74-99); Non-African American GFR(CKD) >90 (>60 ml/min/1.73 sqM); Potassium 4.3 mmol/L (3.5-5.1); Sodium 139 mmol/L (137-145); Total Bilirubin 0.2 mg/dL (0.2-1.3); Total Protein 7.6 g/dL (6.3-8.2)
== END | disposition home or self-care (01) ==
LOC: LABPAT 14:27
PROVIDERS: ATTEND Surgery
DX: Z01.812 Encounter for preprocedural laboratory examination (principal); Z01.810 Encounter for preprocedural cardiovascular examination
CPT/HCPCS: 36415; 80053; 85025

== ENCOUNTER → 2020-12-28 | Outpatient (CLI) | payer OTHER ==
[2020-12-28 14:07] VITALS: RESP 18; TEMP 98; BMI 49.0
[2020-12-28 14:21] VITALS: BP 120/101; PULSE 134
--- NOTE | 2020-12-28 16:02 | P.HPBAR ---
Bariatric H&P - History & Physicial H&P Date: 12/28/20 History & Physicial: Visit/CC: lap band follow up Patient initial contact: Initial weight: Initial weight in pounds: Height: 5 ft 6 in Initial BMI: Last weight: Current weight: 137.801 kg Current weight in pounds: 303.80 Current BMI: 49.0 [place] body weight (based on NIH guidelines): 58.967 kg Excess body weight loss: The patient is a 45 year-old F who presents for Bariatric Assessment. Patient presents today for follow-up. She is up and seen several years. She has a malfunctioning LAP-BAND port. She is requesting a port replaced. Past Medical History Past Medical History: Hypertension, Sleep Apnea/CPAP/BIPAP Additional Past Medical History / Comment(s): depression. sciatic pain. History of Any Multi-Drug Resistant Organisms: None Reported Past Surgical History: Bariatric Surgery Additional Past Surgical History / Comment(s): lap band Past Anesthesia/Blood Transfusion Reactions: No Reported Reaction Additional Past Anesthesia/Blood Transfusion Reaction / Comm: per patient - "hits harder than normal people" and "takes longer to wake up" Smoking Status: Current every day smoker Surgical - Exam Vital Signs Temp Pulse Resp BP 98 F 122 H 18 156/116 12/28/20 13:55 12/28/20 13:55 12/28/20 13:55 12/28/20 13:55 - General well developed, well nourished, no distress - Eyes PERRL - ENT normal pinna - Neck no masses - Respiratory normal expansion - Cardiovascular Rhythm: regular - Abdomen Abdomen: soft, non tender Bariatric Assessment & Plan Plan: Patient was scheduled for LAP-BAND port placement. Bariatric Checklist Checklist: Plan: Checklist: EGD: 1. Hiatal hernia: 2. H. Pylori: HgbA1c: Vitamin D: Smoking: Current every day smoker Primary care physician referral: Dr. Miles Psychiatry clearance: Cardiology clearance: Sleep study: Diet journal: VTE risk score: VTE risk level: Rehab needs at discharge:
== END | disposition home or self-care (01) ==
LOC: BARWHC3 13:00
PROVIDERS: ATTEND Surgery
DX: E66.01 Morbid (severe) obesity due to excess calories (principal); K95.09 Other complications of gastric band procedure; I10 Essential (primary) hypertension; G47.33 Obstructive sleep apnea (adult) (pediatric); F17.200 Nicotine dependence, unspecified, uncomplicated; Z68.42 Body mass index [BMI] 45.0-49.9, adult; Z98.84 Bariatric surgery status; Z95.828 Presence of other vascular implants and grafts
CPT/HCPCS: 99211

== ENCOUNTER → 2021-02-10 | Outpatient (CLI) | payer OTHER ==
[2021-02-10 11:29] LABS: ALT 29 U/L (4-34); AST 28 U/L (14-36); African American GFR (CKD) >90 (>60 ml/min/1.73 sqM); Albumin 3.9 g/dL (3.5-5.0); Alkaline Phosphatase 93 U/L (38-126); Anion Gap 9 mmol/L; Blood Urea Nitrogen 10 mg/dL (7-17); Calcium 9.4 mg/dL (8.4-10.2); Carbon Dioxide 22 mmol/L (22-30); Chloride 106 mmol/L (98-107); Glucose 118 mg/dL (74-99); Non-African American GFR(CKD) >90 (>60 ml/min/1.73 sqM); Potassium 4.3 mmol/L (3.5-5.1); Sodium 137 mmol/L (137-145); Total Bilirubin 0.1 mg/dL (0.2-1.3); Total Protein 7.3 g/dL (6.3-8.2)
[2021-02-10 11:36] LABS: Anisocytosis Slight; Basophils # (A) 0.1 k/uL (0-0.2); Basophils % (A) 1 %; Eosinophils # (A) 0.4 k/uL (0-0.7); Eosinophils % (A) 4 %; HCT 42.4 % (34.0-46.0); HGB 14.1 gm/dL (11.4-16.0); Lymphocytes # (A) 2.7 k/uL (1.0-4.8); Lymphocytes % (A) 26 %; MCH 31.9 pg (25.0-35.0); MCHC 33.2 g/dL (31.0-37.0); MCV 96.1 fL (80.0-100.0); Mean Platelet Volume 7.2; Monocytes # (A) 0.5 k/uL (0-1.0); Monocytes % (A) 5 %; Neutrophils # (A) 6.3 k/uL (1.3-7.7); Neutrophils % (A) 62 %; Platelet Count 545 k/uL (150-450); RBC 4.41 m/uL (3.80-5.40); RDW 16.1 % (11.5-15.5); WBC 10.2 k/uL (3.8-10.6)
== END | disposition home or self-care (01) ==
LOC: LABPAT 10:43
PROVIDERS: ATTEND Surgery
DX: Z01.812 Encounter for preprocedural laboratory examination (principal)
CPT/HCPCS: 80053; 85025

== ENCOUNTER 2021-02-17 08:29 | Day surgery (SDC) | payer OTHER ==
[2021-02-09 13:35] VITALS: BMI 50.7
[~2021-02-17 08:29] MED LIST: DEXAMETHASONE SOD PHOSPHATE 4 MG/ML 1 ML VIAL IV ONE; HYDROmorphone 0.5 MG/0.5 ML SYRINGE IVP PRN; LACTATED RINGERS 1,000 ML IV SCH; LIDOCAINE 1% (10MG/ML) FOR IV START INTRADERMA PRN; MIDAZOLAM 2 MG/2 ML VIAL IV PRN; ONDANSETRON 4 MG/2 ML VIAL IVP ONE; ceFAZolin 3 GM in SODIUM CHLORIDE 0.9% 100 ML IVPB PRN
--- NOTE | 2021-02-17 09:40 | P.GSHP ---
History of Present Illness H&P Date: 02/17/21 Chief Complaint: LAP-BAND port malfunction This a 45-year-old female who presents today for LAP-BAND port placement. Patient's had issues her LAP-BAND port. His malfunction of her LAP-BAND port. Past Medical History Past Medical History: Hypertension, Sleep Apnea/CPAP/BIPAP Additional Past Medical History / Comment(s): Sciatica. No CPAP use. History of Any Multi-Drug Resistant Organisms: None Reported Past Surgical History: Bariatric Surgery Additional Past Surgical History / Comment(s): Lap band. Past Anesthesia/Blood Transfusion Reactions: No Reported Reaction Additional Past Anesthesia/Blood Transfusion Reaction / Comment(s): Per patient - "hits me harder than normal people" and "takes longer to wake up." Past Psychological History: Anxiety, Depression, PTSD Additional Psychological History / Comment(s): Argophobia. Smoking Status: Current every day smoker Past Alcohol Use History: None Reported Additional Past Alcohol Use History / Comment(s): Smokes 1 PPD X30 yrs. Past Drug Use History: Prescription Drug Abuse Additional Drug Use History / Comment(s): Hx Prescription Drug Abuse 4 yrs ago. - Past Family History Mother Family Medical History: No Reported History Medications and Allergies Home Medications Medication Instructions Recorded Confirmed Type Albuterol Inhaler [Ventolin Hfa 1 puff INHALATION DIRECTED PRN 12/28/20 02/09/21 History Inhaler] Citalopram Hydrobromide [CeleXA] 40 mg PO QAM 12/28/20 02/09/21 History EPINEPHrine (Auto Inject) [Epipen] 0.3 mg IM ONCE PRN 12/28/20 02/09/21 History Ibuprofen [Motrin] 800 mg PO QID 12/28/20 02/09/21 History OLANZapine 7.5 mg PO HS 12/28/20 02/09/21 History cloNIDine HCL [Catapres] 0.1 mg PO BID 12/28/20 02/09/21 History clonazePAM [KlonoPIN] 1 mg PO BID 12/28/20 02/09/21 History Ergocalciferol [Vitamin D2 (1250 1,250 mcg PO Q14D 02/09/21 02/09/21 History Mcg = [id number] Iu)] Allergies Allergy/AdvReac Type Severity Reaction Status Date / Time peanut Allergy Anaphylaxis Verified 02/17/21 09:31 Surgical - Exam Vital Signs Temp Pulse Resp BP Pulse Ox 97.0 F L 133 H 15 138/81 98 02/17/21 09:36 02/17/21 09:36 02/17/21 09:36 02/17/21 09:36 02/17/21 09:36 - General well developed, well nourished, no distress - Eyes PERRL - ENT normal pinna - Neck no masses - Respiratory normal expansion - Cardiovascular Rhythm: regular - Abdomen Abdomen: soft, non tender Assessment and Plan Assessment: LAP-BAND port function. We'll perform laparoscopic replacement.
[2021-02-17] MEDS ORDERED: HEPARIN SODIUM,PORCINE/PF 5,000 UNIT/0.5 ML SYRINGE SQ ONE (09:51)
[2021-02-17] MEDS ORDERED: ENOXAPARIN 40 MG/0.4 ML SYRINGE SQ STA (09:53)
[2021-02-17] MEDS ORDERED: ROCURONIUM 10 MG/ML (5 ML VIAL) IV ONE (10:07)
[2021-02-17] MEDS ORDERED: LIDOCAINE 1% INJ 10MG/ML (20 ML MDV) ONE (10:07)
[2021-02-17] MEDS ORDERED: NEOSTIGMINE 1 MG/ML 10 ML VIAL ONE (10:07)
[2021-02-17] MEDS ORDERED: PROPOFOL 10 MG/ML 20 ML VIAL IV ONE (10:07)
[2021-02-17] MEDS ORDERED: HEPARIN SODIUM,PORCINE 5,000 UNIT/ML 1 ML VIAL ONE (10:07)
[2021-02-17] MEDS ORDERED: KETOROLAC 15 MG/ML 1 ML VIAL ONE (10:07)
[2021-02-17] MEDS ORDERED: SUCCINYLCHOLINE CHLORIDE VIAL 200 MG/10 ML VIAL IV ONE (10:07)
[2021-02-17] MEDS ORDERED: fentaNYL (PF) 50 MCG/ML 2 ML AMP ONE (10:07)
[2021-02-17] MEDS ORDERED: GLYCOPYRROLATE 0.2 MG/ML 2 ML VIAL ONE (10:07)
[2021-02-17] MEDS ORDERED: KETAMINE 10 MG/ML 20 ML VIAL ONE (10:07)
[2021-02-17] MEDS ORDERED: BUPIVACAINE (PF) 0.5% 30 ML VIAL SQ ONE (10:41)
--- NOTE | 2021-02-17 11:16 | P.OP ---
Date of Procedure: 02/17/21 Preoperative Diagnosis: LAP-BAND port malfunction Postoperative Diagnosis: LAP-BAND port malfunction Morbid obesity, BMI 51 Procedure(s) Performed: Laparoscopic removal and replacement of LAP-BAND port Anesthesia: MAC Surgeon: Maurice Mohan Estimated Blood Loss (ml): 10 Pathology: none sent Condition: stable Disposition: PACU Description of Procedure: The patient's placed on the operative table in the supine position. She received general trach tube anesthesia. Her abdomen was prepped and draped usual fashion. The skin was incised at the LAP-BAND port. Using blunt and sharp dissection with cautery the LAP-BAND port was dissected free. Fracture the PEG tube the LAP-BAND port. The PEG tube was then cut. Next a 5 mm optical trochars placed in the patient's. Cavity. Inflation laps was placed. Cavity. Next a 10 mm trochars placed in the right epigastric position. The PEG tube was then brought up through the 10 mm trocar site. The trochars withdrawn. The new LAP-BAND port was connected to the PEG tube and then secured to the fascia using 0 Nurolon suture. The LAP-BAND was inflated with 1 mL of saline. The incision sites are cefepime status. No bleeding seen. Skin was closed interrupted 3-0 Monocryl suture. Dermabond was applied. Patient top she will was sent to recovery room in stable condition.
[2021-02-17 11:22] VITALS: TEMP 98.8
[2021-02-17 12:52] VITALS: BP 142/98; PULSE 91; RESP 18
== END 2021-02-17 13:13 | disposition home or self-care (01) ==
LOC: OR 08:29
PROVIDERS: ATTEND Surgery
DX: Z46.51 Encounter for fitting and adjustment of gastric lap band (principal); E66.01 Morbid (severe) obesity due to excess calories; Z68.43 Body mass index [BMI] 50.0-59.9, adult; F41.9 Anxiety disorder, unspecified; F32.9 Major depressive disorder, single episode, unspecified; F17.210 Nicotine dependence, cigarettes, uncomplicated; F40.00 Agoraphobia, unspecified; F19.10 Other psychoactive substance abuse, uncomplicated; Z79.899 Other long term (current) drug therapy; Z91.010 Allergy to peanuts; I10 Essential (primary) hypertension; J45.909 Unspecified asthma, uncomplicated; G47.30 Sleep apnea, unspecified; K21.9 Gastro-esophageal reflux disease without esophagitis
CPT/HCPCS: 81025; 43659; C1751; J2250; J0330; J1644; J1100; J2710; J0690; J2405; J2001; J3010; J1885; J2704; J1170

== ENCOUNTER → 2021-02-22 | Outpatient (CLI) | payer OTHER ==
[2021-02-22 14:57] VITALS: BP 149/101; PULSE 73; RESP 18; TEMP 99; BMI 49.8
--- NOTE | 2021-03-09 10:49 | P.HPBAR ---
Bariatric H&P - History & Physicial H&P Date: 02/22/21 History & Physicial: Visit/CC: follow up / lap band Patient initial contact: Initial weight: Initial weight in pounds: Height: 5 ft 6 in Initial BMI: Last weight: Current weight: 140.16 kg Current weight in pounds: 309.00 Current BMI: 49.8 [place] body weight (based on NIH guidelines): 58.967 kg Excess body weight loss: The patient is a 45 year-old F who presents for Bariatric Assessment. Patient presents today for laparoscopic and follow-up. She is requesting a fill. Past Medical History Past Medical History: Hypertension, Sleep Apnea/CPAP/BIPAP Additional Past Medical History / Comment(s): Sciatica. No CPAP use. History of Any Multi-Drug Resistant Organisms: None Reported Past Surgical History: Bariatric Surgery Additional Past Surgical History / Comment(s): Lap band. Past Anesthesia/Blood Transfusion Reactions: No Reported Reaction Additional Past Anesthesia/Blood Transfusion Reaction / Comm: Per patient - "hits me harder than normal people" and "takes longer to wake up." Past Psychological History: Anxiety, Depression, PTSD Additional Psychological History / Comment(s): Argophobia. Smoking Status: Current every day smoker Past Alcohol Use History: None Reported Additional Past Alcohol Use History / Comment(s): Smokes 1 PPD X30 yrs. Past Drug Use History: Prescription Drug Abuse Additional Drug Use History / Comment(s): Hx Prescription Drug Abuse 4 yrs ago. - Past Family History Mother Family Medical History: No Reported History Surgical - Exam Vital Signs Temp Pulse Resp BP 99 F 73 18 149/101 02/22/21 14:54 02/22/21 14:54 02/22/21 14:54 02/22/21 14:54 - General well developed, well nourished, no distress - Eyes PERRL - ENT normal pinna - Cardiovascular Rhythm: regular - Abdomen Abdomen: soft, non tender Bariatric Assessment & Plan Plan: Patient's LAP-BAND port was adjusted. She has a malfunctioning LAP-BAND port. She will need to be scheduled for LAP-BAND port replacement. Bariatric Checklist Checklist: Plan: Checklist: EGD: 1. Hiatal hernia: 2. H. Pylori: HgbA1c: Vitamin D: Smoking: Current every day smoker Primary care physician referral: Dr. Miles Psychiatry clearance: Cardiology clearance: Sleep study: Diet journal: VTE risk score: VTE risk level: Rehab needs at discharge:
== END | disposition home or self-care (01) ==
LOC: BARWHC3 14:33
PROVIDERS: ATTEND Surgery
DX: K95.09 Other complications of gastric band procedure (principal)
CPT/HCPCS: 99211

== ENCOUNTER → 2021-03-29 | Outpatient (CLI) | payer OTHER ==
[2021-03-29 15:22] VITALS: BP 153/99; PULSE 84; RESP 16; TEMP 97.8; BMI 50.6
--- NOTE | 2021-03-29 15:53 | P.HPBAR ---
Bariatric H&P - History & Physicial H&P Date: 03/29/21 History & Physicial: Visit/CC: band fill Patient initial contact: Initial weight: 142.428 kg Initial weight in pounds: 314.00 Height: 5 ft 6 in Initial BMI: 50.6 Last weight: Current weight: 142.428 kg Current weight in pounds: 314.00 Current BMI: 50.6 [place] body weight (based on NIH guidelines): 58.967 kg Excess body weight loss: 0.0% The patient is a 45 year-old F who presents for Bariatric Assessment. Patient rents today for LAP-BAND adjustment. She currently is hungry requesting a fill. Past Medical History Past Medical History: Hypertension, Sleep Apnea/CPAP/BIPAP Additional Past Medical History / Comment(s): Sciatica. No CPAP use. History of Any Multi-Drug Resistant Organisms: None Reported Past Surgical History: Bariatric Surgery Additional Past Surgical History / Comment(s): Lap band. Past Anesthesia/Blood Transfusion Reactions: No Reported Reaction Additional Past Anesthesia/Blood Transfusion Reaction / Comm: Per patient - "hits me harder than normal people" and "takes longer to wake up." Past Psychological History: Anxiety, Depression, PTSD Additional Psychological History / Comment(s): Argophobia. Smoking Status: Current every day smoker Past Alcohol Use History: None Reported Additional Past Alcohol Use History / Comment(s): Smokes 1 PPD X30 yrs. Past Drug Use History: Prescription Drug Abuse Additional Drug Use History / Comment(s): Hx Prescription Drug Abuse 4 yrs ago. - Past Family History Mother Family Medical History: No Reported History Surgical - Exam Vital Signs Temp Pulse Resp BP 97.8 F 84 16 153/99 03/29/21 15:19 03/29/21 15:19 03/29/21 15:19 03/29/21 15:19 - General well developed, well nourished, no distress - Eyes PERRL - ENT normal pinna, normal nares - Neck no masses - Respiratory normal expansion - Cardiovascular Rhythm: regular - Abdomen Abdomen: soft, non tender Bariatric Assessment & Plan Plan: Patient LAP-BAND. She had 2 mL added to her band. She was able to drink water without difficulty. She'll follow-up in 4 weeks. Bariatric Checklist Checklist: Plan: Checklist: EGD: 1. Hiatal hernia: 2. H. Pylori: HgbA1c: Vitamin D: Smoking: Current every day smoker Primary care physician referral: Dr. Miles Psychiatry clearance: Cardiology clearance: Sleep study: Diet journal: VTE risk score: VTE risk level: Rehab needs at discharge:
== END | disposition home or self-care (01) ==
LOC: BARWHC3 14:28
PROVIDERS: ATTEND Surgery
DX: E66.01 Morbid (severe) obesity due to excess calories (principal); Z68.43 Body mass index [BMI] 50.0-59.9, adult
CPT/HCPCS: 99212

== ENCOUNTER → 2021-04-02 | Outpatient (CLI) | payer OTHER ==
[2021-04-02 10:04] VITALS: BP 148/99; PULSE 98; RESP 16; TEMP 98.5; BMI 48.1
--- NOTE | 2021-04-02 10:34 | P.HPBAR ---
Bariatric H&P - History & Physicial H&P Date: 04/02/21 History & Physicial: Visit/CC: band f/u Patient initial contact: Initial weight: 142.428 kg Initial weight in pounds: 314.00 Height: 5 ft 6 in Initial BMI: 50.6 Last weight: Current weight: 135.171 kg Current weight in pounds: 298.00 Current BMI: 48.1 [place] body weight (based on NIH guidelines): 58.967 kg Excess body weight loss: 8.6% The patient is a 45 year-old F who presents for Bariatric Assessment. Patient has complaints of dysphagia. She is troubled. Past Medical History Past Medical History: Hypertension, Sleep Apnea/CPAP/BIPAP Additional Past Medical History / Comment(s): Sciatica. No CPAP use. History of Any Multi-Drug Resistant Organisms: None Reported Past Surgical History: Bariatric Surgery Additional Past Surgical History / Comment(s): Lap band. Past Anesthesia/Blood Transfusion Reactions: No Reported Reaction Additional Past Anesthesia/Blood Transfusion Reaction / Comm: Per patient - "hits me harder than normal people" and "takes longer to wake up." Smoking Status: Current every day smoker - Past Family History Mother Family Medical History: No Reported History Surgical - Exam Vital Signs Temp Pulse Resp BP 98.5 F 98 16 148/99 04/02/21 09:53 04/02/21 09:53 04/02/21 09:53 04/02/21 09:53 - General well developed, well nourished, no distress - Eyes PERRL - ENT normal pinna - Neck no masses - Respiratory normal expansion - Cardiovascular Rhythm: regular - Abdomen Abdomen: soft, non tender Bariatric Assessment & Plan Plan: Patient LAP-BAND was adjusted. She had 2 mL LAP-BAND. She'll follow-up in 3 days for a refill of her band system Bariatric Checklist Checklist: Plan: Checklist: EGD: 1. Hiatal hernia: 2. H. Pylori: HgbA1c: Vitamin D: Smoking: Current every day smoker Primary care physician referral: Dr. Miles Psychiatry clearance: Cardiology clearance: Sleep study: Diet journal: VTE risk score: VTE risk level: Rehab needs at discharge:
== END | disposition home or self-care (01) ==
LOC: BARWHC3 08:38
PROVIDERS: ATTEND Surgery
DX: Z45.89 Encounter for adjustment and management of other implanted devices (principal)
CPT/HCPCS: 99212

== ENCOUNTER → 2021-04-12 | Outpatient (CLI) | payer OTHER ==
[2021-04-12 16:21] VITALS: BP 148/113; PULSE 123; RESP 16; TEMP 98.6; BMI 51.5
--- NOTE | 2021-04-22 19:42 | P.HPBAR ---
Bariatric H&P - History & Physicial H&P Date: 04/12/21 History & Physicial: Visit/CC: band adj Patient initial contact: Initial weight: 142.428 kg Initial weight in pounds: 314.00 Height: 5 ft 6 in Initial BMI: 50.6 Last weight: Current weight: 144.696 kg Current weight in pounds: 319.00 Current BMI: 51.5 [place] body weight (based on NIH guidelines): 58.967 kg Excess body weight loss: The patient is a 45 year-old F who presents for Bariatric Assessment. Patient presents today for LAP-BAND adjustment. She is requesting a fill her band. Past Medical History Past Medical History: Hypertension, Sleep Apnea/CPAP/BIPAP Additional Past Medical History / Comment(s): Sciatica. No CPAP use. History of Any Multi-Drug Resistant Organisms: None Reported Past Surgical History: Bariatric Surgery Additional Past Surgical History / Comment(s): Lap band. Past Anesthesia/Blood Transfusion Reactions: No Reported Reaction Additional Past Anesthesia/Blood Transfusion Reaction / Comm: Per patient - "hits me harder than normal people" and "takes longer to wake up." Past Psychological History: Anxiety, Depression, PTSD Additional Psychological History / Comment(s): Argophobia. Smoking Status: Current every day smoker Past Alcohol Use History: None Reported Additional Past Alcohol Use History / Comment(s): Smokes 1 PPD X30 yrs. Past Drug Use History: Prescription Drug Abuse Additional Drug Use History / Comment(s): Hx Prescription Drug Abuse 4 yrs ago. - Past Family History Mother Family Medical History: No Reported History Surgical - Exam Vital Signs Temp Pulse Resp BP 98.6 F 123 H 16 148/113 04/12/21 15:51 04/12/21 15:51 04/12/21 15:51 04/12/21 15:51 - General well developed, well nourished, no distress - Eyes PERRL - ENT normal pinna - Neck no masses - Respiratory normal expansion - Cardiovascular Rhythm: regular - Abdomen Abdomen: soft, non tender Bariatric Assessment & Plan Plan: Patient had 1 mL added to her band. She was ill drink water without difficulty. She'll follow-up in 4 weeks. Bariatric Checklist Checklist: Plan: Checklist: EGD: 1. Hiatal hernia: 2. H. Pylori: HgbA1c: Vitamin D: Smoking: Current every day smoker Primary care physician referral: Dr. Miles Psychiatry clearance: Cardiology clearance: Sleep study: Diet journal: VTE risk score: VTE risk level: Rehab needs at discharge:
== END | disposition home or self-care (01) ==
LOC: BARWHC3 14:37
PROVIDERS: ATTEND Surgery
DX: E66.01 Morbid (severe) obesity due to excess calories (principal); Z68.43 Body mass index [BMI] 50.0-59.9, adult
CPT/HCPCS: 99212

== ENCOUNTER → 2021-04-26 | Outpatient (CLI) | payer OTHER ==
[2021-04-26 15:09] VITALS: BP 168/102; PULSE 122; RESP 18; BMI 50.8
--- NOTE | 2021-04-27 12:39 | P.HPBAR ---
Bariatric H&P - History & Physicial H&P Date: 04/26/21 History & Physicial: Visit/CC: lap band follow up Patient initial contact: Initial weight: 142.428 kg Initial weight in pounds: 314.00 Height: 5 ft 6 in Initial BMI: 50.6 Last weight: Current weight: 142.882 kg Current weight in pounds: 315.00 Current BMI: 50.8 [place] body weight (based on NIH guidelines): 58.967 kg Excess body weight loss: The patient is a 45 year-old F who presents for Bariatric Assessment. Patient presents today for LAP-BAND adjustment. She currently is hungry and is requesting a fill. Past Medical History Past Medical History: Hypertension, Sleep Apnea/CPAP/BIPAP Additional Past Medical History / Comment(s): Sciatica. No CPAP use. History of Any Multi-Drug Resistant Organisms: None Reported Past Surgical History: Bariatric Surgery Additional Past Surgical History / Comment(s): Lap band. Past Anesthesia/Blood Transfusion Reactions: No Reported Reaction Additional Past Anesthesia/Blood Transfusion Reaction / Comm: Per patient - "hits me harder than normal people" and "takes longer to wake up." Smoking Status: Current every day smoker - Past Family History Mother Family Medical History: No Reported History Surgical - Exam Vital Signs Pulse Resp BP 122 H 18 168/102 04/26/21 14:58 04/26/21 14:58 04/26/21 14:58 - General well developed, well nourished, no distress - Eyes PERRL - ENT normal pinna - Neck no masses - Respiratory normal expansion - Cardiovascular Rhythm: regular - Abdomen Abdomen: soft, non tender Bariatric Assessment & Plan Plan: Patient LAP-BAND was adjusted. She had 0.5 mL added to the band. She will follow-up in 4 weeks. Bariatric Checklist Checklist: Plan: Checklist: EGD: 1. Hiatal hernia: 2. H. Pylori: HgbA1c: Vitamin D: Smoking: Current every day smoker Primary care physician referral: Dr. Miles Psychiatry clearance: Cardiology clearance: Sleep study: Diet journal: VTE risk score: VTE risk level: Rehab needs at discharge:
== END | disposition home or self-care (01) ==
LOC: BARWHC3 14:50
PROVIDERS: ATTEND Surgery
DX: Z46.51 Encounter for fitting and adjustment of gastric lap band (principal)
CPT/HCPCS: 99212

== ENCOUNTER → 2021-05-10 | Outpatient (CLI) | payer OTHER | END | disposition home or self-care (01) | LOC: BARWHC3 13:51 | PROVIDERS: ATTEND Surgery | DX: Z53.9 Procedure and treatment not carried out, unspecified reason (principal) ==

== ENCOUNTER → 2021-05-17 | Outpatient (CLI) | payer OTHER ==
[2021-05-17 14:14] VITALS: BP 135/88; PULSE 123; RESP 18; TEMP 98.2; BMI 51.5
--- NOTE | 2021-05-17 16:13 | P.HPBAR ---
Bariatric H&P - History & Physicial H&P Date: 05/17/21 History & Physicial: Visit/CC: follow up Patient initial contact: Initial weight: 142.428 kg Initial weight in pounds: 314.00 Height: 5 ft 6 in Initial BMI: 50.6 Last weight: Current weight: 144.696 kg Current weight in pounds: 319.00 Current BMI: 51.5 [place] body weight (based on NIH guidelines): 58.967 kg Excess body weight loss: The patient is a 45 year-old F who presents for Bariatric Assessment. Patient presents today for bariatric follow-up. She is requesting a fill of her LAP- BAND. Past Medical History Past Medical History: Hypertension, Sleep Apnea/CPAP/BIPAP Additional Past Medical History / Comment(s): Sciatica. No CPAP use. History of Any Multi-Drug Resistant Organisms: None Reported Past Surgical History: Bariatric Surgery Additional Past Surgical History / Comment(s): Lap band. Past Anesthesia/Blood Transfusion Reactions: No Reported Reaction Additional Past Anesthesia/Blood Transfusion Reaction / Comm: Per patient - "hits me harder than normal people" and "takes longer to wake up." Past Psychological History: Anxiety, Depression, PTSD Additional Psychological History / Comment(s): Argophobia. Smoking Status: Current every day smoker Past Alcohol Use History: None Reported Additional Past Alcohol Use History / Comment(s): Smokes 1 PPD X30 yrs. Past Drug Use History: Prescription Drug Abuse Additional Drug Use History / Comment(s): Hx Prescription Drug Abuse 4 yrs ago. - Past Family History Mother Family Medical History: No Reported History Surgical - Exam Vital Signs Temp Pulse Resp BP 98.2 F 123 H 18 135/88 05/17/21 14:12 05/17/21 14:12 05/17/21 14:12 05/17/21 14:12 - General well developed, well nourished, no distress - Eyes PERRL - ENT normal pinna - Neck no masses - Respiratory normal expansion - Cardiovascular Rhythm: regular - Abdomen Abdomen: soft, non tender Bariatric Assessment & Plan Plan: Patient LAP-BAND was adjusted. She had troponin 0.5 mL added to her band. She will follow-up in 4 weeks. Bariatric Checklist Checklist: Plan: Checklist: EGD: 1. Hiatal hernia: 2. H. Pylori: HgbA1c: Vitamin D: Smoking: Current every day smoker Primary care physician referral: Dr. Miles Psychiatry clearance: Cardiology clearance: Sleep study: Diet journal: VTE risk score: VTE risk level: Rehab needs at discharge:
== END | disposition home or self-care (01) ==
LOC: BARWHC3 13:53
PROVIDERS: ATTEND Surgery
DX: Z98.84 Bariatric surgery status (principal)
CPT/HCPCS: 99211

== ENCOUNTER → 2021-06-14 | Outpatient (CLI) | payer OTHER ==
[2021-06-14 14:04] VITALS: BP 154/108; PULSE 128; RESP 16; TEMP 98.5; BMI 51.3
--- NOTE | 2021-06-16 13:27 | P.HPBAR ---
Bariatric H&P - History & Physicial H&P Date: 06/14/21 History & Physicial: Visit/CC: Band f/u Patient initial contact: Initial weight: 142.428 kg Initial weight in pounds: 314.00 Height: 5 ft 6 in Initial BMI: 50.6 Last weight: Current weight: 144.242 kg Current weight in pounds: 318.00 Current BMI: 51.3 [place] body weight (based on NIH guidelines): 58.967 kg Excess body weight loss: The patient is a 45 year-old F who presents for Bariatric Assessment. Patient presents today for bariatric follow-up. She just recently had a fill. She states she feels comfortable does not wish to fill. She's had some minimal GERD. Past Medical History Past Medical History: Hypertension, Sleep Apnea/CPAP/BIPAP Additional Past Medical History / Comment(s): Sciatica. No CPAP use. History of Any Multi-Drug Resistant Organisms: None Reported Past Surgical History: Bariatric Surgery Additional Past Surgical History / Comment(s): Lap band. Past Anesthesia/Blood Transfusion Reactions: No Reported Reaction Additional Past Anesthesia/Blood Transfusion Reaction / Comm: Per patient - "hits me harder than normal people" and "takes longer to wake up." Past Psychological History: Anxiety, Depression, PTSD Additional Psychological History / Comment(s): Argophobia. Smoking Status: Current every day smoker Past Alcohol Use History: None Reported Additional Past Alcohol Use History / Comment(s): Smokes 1 PPD X30 yrs. Past Drug Use History: Prescription Drug Abuse Additional Drug Use History / Comment(s): Hx Prescription Drug Abuse 4 yrs ago. - Past Family History Mother Family Medical History: No Reported History Surgical - Exam Vital Signs Temp Pulse Resp BP 98.5 F 128 H 16 154/108 06/14/21 14:02 06/14/21 14:02 06/14/21 14:02 06/14/21 14:02 - General well developed, well nourished, no distress - Eyes PERRL - ENT normal pinna - Neck no masses - Respiratory normal expansion - Cardiovascular Rhythm: regular - Abdomen Abdomen: soft, non tender Bariatric Assessment & Plan Plan: Status post lap band procedure. Patient will not have an adjustment this visit. Her GERD is minimal and will be observed. Bariatric Checklist Checklist: Plan: Checklist: EGD: 1. Hiatal hernia: 2. H. Pylori: HgbA1c: Vitamin D: Smoking: Current every day smoker Primary care physician referral: Dr. Miles Psychiatry clearance: Cardiology clearance: Sleep study: Diet journal: VTE risk score: VTE risk level: Rehab needs at discharge:
== END | disposition home or self-care (01) ==
LOC: BARWHC3 13:27
PROVIDERS: ATTEND Surgery
DX: K21.9 Gastro-esophageal reflux disease without esophagitis (principal)
CPT/HCPCS: 99211

== ENCOUNTER → 2021-08-02 | Outpatient (CLI) | payer OTHER ==
[2021-08-02 15:19] VITALS: BP 153/85; PULSE 98; TEMP 98; BMI 50.6
--- NOTE | 2021-08-03 13:16 | P.HPBAR ---
Bariatric H&P - History & Physicial H&P Date: 08/02/21 History & Physicial: Visit/CC: lap band follow up Patient initial contact: Initial weight: 142.428 kg Initial weight in pounds: 314.00 Height: 5 ft 6 in Initial BMI: 50.6 Last weight: Current weight: 142.428 kg Current weight in pounds: 314.00 Current BMI: 50.6 [place] body weight (based on NIH guidelines): 58.967 kg Excess body weight loss: 0.0% The patient is a 46 year-old F who presents for Bariatric Assessment. Patient presents today for LAP-BAND adjustment. She is requesting a fill. She is hungry Past Medical History Past Medical History: Hypertension, Sleep Apnea/CPAP/BIPAP Additional Past Medical History / Comment(s): Sciatica. No CPAP use. History of Any Multi-Drug Resistant Organisms: None Reported Past Surgical History: Bariatric Surgery Additional Past Surgical History / Comment(s): Lap band. Past Anesthesia/Blood Transfusion Reactions: No Reported Reaction Additional Past Anesthesia/Blood Transfusion Reaction / Comm: Per patient - "hits me harder than normal people" and "takes longer to wake up." Past Psychological History: Anxiety, Depression, PTSD Additional Psychological History / Comment(s): Argophobia. Smoking Status: Current every day smoker Past Alcohol Use History: None Reported Additional Past Alcohol Use History / Comment(s): Smokes 1 PPD X30 yrs. Past Drug Use History: Prescription Drug Abuse Additional Drug Use History / Comment(s): Hx Prescription Drug Abuse 4 yrs ago. - Past Family History Mother Family Medical History: No Reported History Surgical - Exam Vital Signs Temp Pulse BP 98 F 98 153/85 08/02/21 15:17 08/02/21 15:17 08/02/21 15:17 - General well developed, well nourished, no distress - Eyes PERRL - ENT normal pinna - Neck no masses - Respiratory normal expansion - Cardiovascular Rhythm: regular - Abdomen Abdomen: soft, non tender Bariatric Assessment & Plan Plan: Patient's LAP-BAND was adjusted. She had 0.5 mL added to the band. She currently has 3 mL in the band. She will follow-up in 4 weeks. Bariatric Checklist Checklist: Plan: Checklist: EGD: 1. Hiatal hernia: 2. H. Pylori: HgbA1c: Vitamin D: Smoking: Current every day smoker Primary care physician referral: Dr. Miles Psychiatry clearance: Cardiology clearance: Sleep study: Diet journal: VTE risk score: VTE risk level: Rehab needs at discharge:
== END | disposition home or self-care (01) ==
LOC: BARWHC3 14:31
PROVIDERS: ATTEND Surgery
DX: E66.01 Morbid (severe) obesity due to excess calories (principal); Z68.43 Body mass index [BMI] 50.0-59.9, adult
CPT/HCPCS: 99212

== ENCOUNTER → 2021-10-18 | Outpatient (CLI) | payer OTHER ==
[2021-10-18 14:42] VITALS: BP 112/70; PULSE 134; TEMP 98.2; BMI 43.9
--- NOTE | 2022-01-11 12:39 | P.HPBAR ---
Bariatric H&P - History & Physicial H&P Date: 10/18/21 History & Physicial: Visit/CC: lap band follow up Patient initial contact: Initial weight: 142.428 kg Initial weight in pounds: 314.00 Height: 5 ft 6 in Initial BMI: 50.6 Last weight: Current weight: 123.377 kg Current weight in pounds: 272.00 Current BMI: 43.9 [place] body weight (based on NIH guidelines): 58.967 kg Excess body weight loss: 22.8% The patient is a 46 year-old F who presents for Bariatric Assessment. Patient presents today for bariatric follow-up. She's had some mild GERD. She's lost weight. Her current weight is 272 pounds.. His 294 pounds Past Medical History Past Medical History: Hypertension, Sleep Apnea/CPAP/BIPAP Additional Past Medical History / Comment(s): Sciatica. No CPAP use. History of Any Multi-Drug Resistant Organisms: None Reported Past Surgical History: Bariatric Surgery Additional Past Surgical History / Comment(s): Lap band. Past Anesthesia/Blood Transfusion Reactions: No Reported Reaction Additional Past Anesthesia/Blood Transfusion Reaction / Comm: Per patient - "hits me harder than normal people" and "takes longer to wake up." Past Psychological History: Anxiety, Depression, PTSD Additional Psychological History / Comment(s): Argophobia. Smoking Status: Current every day smoker Past Alcohol Use History: None Reported Additional Past Alcohol Use History / Comment(s): Smokes 1 PPD X30 yrs. Past Drug Use History: Prescription Drug Abuse Additional Drug Use History / Comment(s): Hx Prescription Drug Abuse 4 yrs ago. - Past Family History Mother Family Medical History: No Reported History Surgical - Exam Vital Signs Temp Pulse BP 98.2 F 134 H 112/70 10/18/21 14:38 10/18/21 14:38 10/18/21 14:38 - General well developed, well nourished - Eyes PERRL - ENT normal pinna - Neck no masses - Respiratory normal expansion - Cardiovascular Rhythm: regular - Abdomen Abdomen: soft, non tender Bariatric Assessment & Plan Plan: Resolving morbid obesity. Patient's GERD is minimal. Her BMI is 44 today. Bariatric Checklist Checklist: Plan: Checklist: EGD: 1. Hiatal hernia: 2. H. Pylori: HgbA1c: Vitamin D: Smoking: Current every day smoker Primary care physician referral: Dr. Miles Psychiatry clearance: Cardiology clearance: Sleep study: Diet journal: VTE risk score: VTE risk level: Rehab needs at discharge:
== END | disposition home or self-care (01) ==
LOC: BARWHC3 14:15
PROVIDERS: ATTEND Surgery
DX: E66.01 Morbid (severe) obesity due to excess calories (principal); K21.9 Gastro-esophageal reflux disease without esophagitis; Z68.41 Body mass index [BMI] 40.0-44.9, adult
CPT/HCPCS: 99211

== ENCOUNTER → 2022-01-03 | Outpatient (CLI) | payer OTHER ==
[2022-01-03 13:13] VITALS: BP 139/98; PULSE 128; TEMP 97.8; BMI 41.0
--- NOTE | 2022-01-04 16:20 | P.HPBAR ---
Bariatric H&P - History & Physicial H&P Date: 01/03/22 History & Physicial: Visit/CC: lap band f/u Patient initial contact: Initial weight: 142.428 kg Initial weight in pounds: 314.00 Height: 5 ft 6 in Initial BMI: 50.6 Last weight: Current weight: 115.212 kg Current weight in pounds: 254.00 Current BMI: 41.0 [place] body weight (based on NIH guidelines): 58.967 kg Excess body weight loss: 32.6% The patient is a 46 year-old F who presents for Bariatric Assessment. Patient presents today for LAP-BAND follow-up. She's had some minimal GERD. She's had excellent weight loss. Her current weight is 254 pounds. Her previously weight was 270 pounds. Past Medical History Past Medical History: Hypertension, Sleep Apnea/CPAP/BIPAP Additional Past Medical History / Comment(s): Sciatica. No CPAP use. History of Any Multi-Drug Resistant Organisms: None Reported Past Surgical History: Bariatric Surgery Additional Past Surgical History / Comment(s): Lap band. Past Anesthesia/Blood Transfusion Reactions: No Reported Reaction Additional Past Anesthesia/Blood Transfusion Reaction / Comm: Per patient - "hits me harder than normal people" and "takes longer to wake up." Past Psychological History: Anxiety, Depression, PTSD Additional Psychological History / Comment(s): Argophobia. Smoking Status: Current every day smoker Past Alcohol Use History: None Reported Additional Past Alcohol Use History / Comment(s): Smokes 1 PPD X30 yrs. Past Drug Use History: Prescription Drug Abuse Additional Drug Use History / Comment(s): Hx Prescription Drug Abuse 4 yrs ago. - Past Family History Mother Family Medical History: No Reported History Surgical - Exam Vital Signs Temp Pulse BP 97.8 F 128 H 139/98 01/03/22 13:08 01/03/22 13:08 01/03/22 13:08 - General well developed, well nourished, no distress - Eyes PERRL Bariatric Assessment & Plan Plan: Resolving morbid obesity. Patient's GERD is minimal will be observed. She'll follow-up in 4 weeks. Bariatric Checklist Checklist: Plan: Checklist: EGD: 1. Hiatal hernia: 2. H. Pylori: HgbA1c: Vitamin D: Smoking: Current every day smoker Primary care physician referral: Dr. Miles Psychiatry clearance: Cardiology clearance: Sleep study: Diet journal: VTE risk score: VTE risk level: Rehab needs at discharge:
== END | disposition home or self-care (01) ==
LOC: BARWHC3 12:59
PROVIDERS: ATTEND Surgery
DX: E66.01 Morbid (severe) obesity due to excess calories (principal); K21.9 Gastro-esophageal reflux disease without esophagitis
CPT/HCPCS: 99211

== ENCOUNTER → 2024-04-01 | Outpatient (CLI) | payer OTHER ==
[2024-04-01 10:41] VITALS: BP 148/82; PULSE 113; RESP 16; TEMP 98.1; BMI 43.4
--- NOTE | 2024-04-01 17:20 | P.HPBAR ---
Bariatric H&P - History & Physicial H&P Date: 04/01/24 History & Physicial: Visit/CC: f/u lapband Patient initial contact: Initial weight: 142.428 kg Initial weight in pounds: 314.00 Height: 5 ft 6 in Initial BMI: 50.6 Last weight: Current weight: 122.016 kg Current weight in pounds: 269.00 Current BMI: 43.4 [place] body weight (based on NIH guidelines): 58.967 kg Excess body weight loss: 24.4% The patient is a 48 year-old F who presents for Bariatric Assessment. This is a 48-year-old female who has previous history of Lap-Band surgery. Patient states she is having nausea abdominal pain. Patient request to have fluid removed from her band. Past Medical History Past Medical History: Hyperlipidemia, Hypertension, Sleep Apnea/CPAP/BIPAP Additional Past Medical History / Comment(s): Sciatica. No CPAP use. History of Any Multi-Drug Resistant Organisms: None Reported Past Surgical History: Bariatric Surgery Additional Past Surgical History / Comment(s): Lap band, removal of teeth Past Anesthesia/Blood Transfusion Reactions: No Reported Reaction Additional Past Anesthesia/Blood Transfusion Reaction / Comm: Per patient - "hits me harder than normal people" and "takes longer to wake up." Past Psychological History: Anxiety, Depression, PTSD Additional Psychological History / Comment(s): Argophobia. Smoking Status: Current every day smoker Past Alcohol Use History: None Reported Additional Past Alcohol Use History / Comment(s): Smokes 1 PPD X30 yrs. Past Drug Use History: Prescription Drug Abuse Additional Drug Use History / Comment(s): Hx Prescription Drug Abuse - Past Family History Mother Family Medical History: No Reported History Brother(s) Additional Family Medical History / Comment(s): Paronoid Schizophernia Surgical - Exam Vital Signs Temp Pulse Resp BP 98.1 F 113 H 16 148/82 04/01/24 10:32 04/01/24 10:32 04/01/24 10:32 04/01/24 10:32 - General well developed, well nourished, no distress - Eyes PERRL - ENT normal pinna - Neck no masses - Respiratory normal expansion - Cardiovascular Rhythm: regular - Abdomen Abdomen: soft, non tender Bariatric Assessment & Plan Plan: Patient's Lap-Band was empty. She had 2 cc removed with the band. She will follow-up in 1 month. Bariatric Checklist Checklist: Plan: Checklist: EGD: 1. Hiatal hernia: 2. H. Pylori: HgbA1c: Vitamin D: Smoking: Current every day smoker Primary care physician referral: Dr. Miles Psychiatry clearance: Cardiology clearance: Sleep study: Diet journal: VTE risk score: VTE risk level: Rehab needs at discharge:
== END ==
LOC: BARWHC3 10:14
PROVIDERS: ATTEND Surgery
CPT/HCPCS: 43999

== ENCOUNTER → 2024-04-29 | Outpatient (CLI) | payer OTHER ==
[2024-04-29 09:50] VITALS: BP 134/95; PULSE 94; RESP 16; TEMP 98.5; BMI 43.2
--- NOTE | 2024-04-29 10:07 | P.HPBAR ---
Bariatric H&P - History & Physicial H&P Date: 04/29/24 History & Physicial: Visit/CC: f/u lap band Patient initial contact: Initial weight: 142.428 kg Initial weight in pounds: 314.00 Height: 5 ft 6 in Initial BMI: 50.6 Last weight: Current weight: 121.563 kg Current weight in pounds: 268.00 Current BMI: 43.2 [place] body weight (based on NIH guidelines): 58.967 kg Excess body weight loss: 25.0% The patient is a 48 year-old F who presents for Bariatric Assessment. This is a 48-year-old female whose had complaints of dysphagia related to her Lap-Band. Patient wishes to convert to sleeve gastrectomy. Patient is unable to tolerate fills of her Lap-Band. Patient states that she is not u to do conversion surgery for several months due to school. She does not wish to have a fill of her band today. Past Medical History Past Medical History: Hyperlipidemia, Hypertension, Sleep Apnea/CPAP/BIPAP Additional Past Medical History / Comment(s): Sciatica. No CPAP use. History of Any Multi-Drug Resistant Organisms: None Reported Past Surgical History: Bariatric Surgery Additional Past Surgical History / Comment(s): Lap band, removal of teeth Past Anesthesia/Blood Transfusion Reactions: No Reported Reaction Additional Past Anesthesia/Blood Transfusion Reaction / Comm: Per patient - "hits me harder than normal people" and "takes longer to wake up." Past Psychological History: Anxiety, Depression, PTSD Additional Psychological History / Comment(s): Argophobia. Smoking Status: Current every day smoker Past Alcohol Use History: None Reported Additional Past Alcohol Use History / Comment(s): Smokes 1 PPD X30 yrs. Past Drug Use History: Prescription Drug Abuse Additional Drug Use History / Comment(s): Hx Prescription Drug Abuse - Past Family History Mother Family Medical History: No Reported History Brother(s) Additional Family Medical History / Comment(s): Paronoid Schizophernia Surgical - Exam Vital Signs Temp Pulse Resp BP 98.5 F 94 16 134/95 04/29/24 09:45 04/29/24 09:45 04/29/24 09:45 04/29/24 09:45 - General well developed, well nourished, no distress - Eyes PERRL - ENT normal pinna - Neck no masses - Respiratory normal expansion - Cardiovascular Rhythm: regular - Abdomen Abdomen: soft, non tender Bariatric Assessment & Plan Plan: Dysphagia related to Lap-Band. Patient will await insurance authorization for conversion to sleeve gastrectomy. Bariatric Checklist Checklist: Plan: Checklist: EGD: 1. Hiatal hernia: 2. H. Pylori: HgbA1c: Vitamin D: Smoking: Current every day smoker Primary care physician referral: Dr. Miles Psychiatry clearance: Cardiology clearance: Sleep study: Diet journal: VTE risk score: VTE risk level: Rehab needs at discharge:
== END ==
LOC: BARWHC3 09:24
PROVIDERS: ATTEND Surgery
DX: Z46.51 Encounter for fitting and adjustment of gastric lap band (principal); R13.10 Dysphagia, unspecified; F17.210 Nicotine dependence, cigarettes, uncomplicated; Z98.84 Bariatric surgery status; Z91.010 Allergy to peanuts
CPT/HCPCS: 99211

== ENCOUNTER → 2024-07-01 | Outpatient (CLI) | payer OTHER ==
[2024-07-01 11:06] VITALS: BP 127/97; PULSE 101; TEMP 98.5; BMI 48.1
--- NOTE | 2024-07-01 16:55 | P.HPBAR ---
Bariatric H&P - History & Physicial H&P Date: 07/01/24 History & Physicial: Visit/CC: lap band follow up Patient initial contact: Initial weight: 142.428 kg Initial weight in pounds: 314.00 Height: 5 ft 6 in Initial BMI: 50.6 Last weight: Current weight: 135.171 kg Current weight in pounds: 298.00 Current BMI: 48.1 [place] body weight (based on NIH guidelines): 58.967 kg Excess body weight loss: 8.6% The patient is a 48 year-old F who presents for Bariatric Assessment. Patient presents today for Peritrate follow-up. She is requesting a fill of her Lap- Band. Past Medical History Past Medical History: Hyperlipidemia, Hypertension, Sleep Apnea/CPAP/BIPAP Additional Past Medical History / Comment(s): Sciatica. No CPAP use. History of Any Multi-Drug Resistant Organisms: None Reported Past Surgical History: Bariatric Surgery Additional Past Surgical History / Comment(s): Lap band, removal of teeth Past Anesthesia/Blood Transfusion Reactions: No Reported Reaction Additional Past Anesthesia/Blood Transfusion Reaction / Comm: Per patient - "hits me harder than normal people" and "takes longer to wake up." Smoking Status: Current every day smoker - Past Family History Mother Family Medical History: No Reported History Brother(s) Additional Family Medical History / Comment(s): Paronoid Schizophernia Surgical - Exam Vital Signs Temp Pulse BP 98.5 F 101 H 127/97 07/01/24 11:00 07/01/24 11:00 07/01/24 11:00 - General well developed - Eyes PERRL - ENT normal pinna - Neck no masses - Respiratory normal expansion - Cardiovascular Rhythm: regular - Abdomen Abdomen: soft, non tender Bariatric Assessment & Plan Plan: Patient Lap-Band was adjusted. She had 1 cc after the band. Bariatric Checklist Checklist: Plan: Checklist: EGD: 1. Hiatal hernia: 2. H. Pylori: HgbA1c: Vitamin D: Smoking: Current every day smoker Primary care physician referral: Dr. Miles Psychiatry clearance: Cardiology clearance: Sleep study: Diet journal: VTE risk score: VTE risk level: Rehab needs at discharge:
== END ==
LOC: BARWHC3 10:50
PROVIDERS: ATTEND Surgery
DX: K44.9 Diaphragmatic hernia without obstruction or gangrene (principal); B96.81 Helicobacter pylori [H. pylori] as the cause of diseases classified elsewhere; F17.210 Nicotine dependence, cigarettes, uncomplicated; Z91.010 Allergy to peanuts
CPT/HCPCS: 43999

== ENCOUNTER → 2024-08-12 | Outpatient (CLI) | payer OTHER ==
[2024-08-12 10:02] VITALS: BP 132/95; PULSE 108; RESP 16; TEMP 97.7; BMI 47.2
--- NOTE | 2024-08-12 10:46 | P.HPBAR ---
Bariatric H&P - History & Physicial H&P Date: 08/12/24 History & Physicial: Visit/CC: f/u lap band Patient initial contact: Initial weight: 142.428 kg Initial weight in pounds: 314.00 Height: 5 ft 6 in Initial BMI: 50.6 Last weight: Current weight: 132.903 kg Current weight in pounds: 293.00 Current BMI: 47.2 [place] body weight (based on NIH guidelines): 59.09 kg Excess body weight loss: 11.4% The patient is a 49 year-old F who presents for Bariatric Assessment. Patient presents today for bariatric follow-up. Patient is had some minimal gerd. She states that she feels full. Past Medical History Past Medical History: Hyperlipidemia, Hypertension, Sleep Apnea/CPAP/BIPAP Additional Past Medical History / Comment(s): Sciatica. No CPAP use. History of Any Multi-Drug Resistant Organisms: None Reported Past Surgical History: Bariatric Surgery Additional Past Surgical History / Comment(s): Lap band, removal of teeth Past Anesthesia/Blood Transfusion Reactions: No Reported Reaction Additional Past Anesthesia/Blood Transfusion Reaction / Comm: Per patient - "hits me harder than normal people" and "takes longer to wake up." Smoking Status: Current every day smoker - Past Family History Mother Family Medical History: No Reported History Brother(s) Additional Family Medical History / Comment(s): Paronoid Schizophernia Surgical - Exam Vital Signs Temp Pulse Resp BP 97.7 F 108 H 16 132/95 08/12/24 09:59 08/12/24 09:59 08/12/24 09:59 08/12/24 09:59 - General well developed, well nourished, no distress - Eyes PERRL - ENT normal pinna - Neck no masses - Respiratory normal expansion - Cardiovascular Rhythm: regular - Abdomen Abdomen: soft, non tender Bariatric Assessment & Plan Plan: Patient is gerd is minimal and will be observed. She will follow-up in 4 weeks. Bariatric Checklist Checklist: Plan: Checklist: EGD: 1. Hiatal hernia: 2. H. Pylori: HgbA1c: Vitamin D: Smoking: Current every day smoker Primary care physician referral: Dr. Miles Psychiatry clearance: Cardiology clearance: Sleep study: Diet journal: VTE risk score: VTE risk level: Rehab needs at discharge:
== END ==
LOC: BARWHC3 09:48
PROVIDERS: ATTEND Surgery
DX: E66.01 Morbid (severe) obesity due to excess calories (principal); Z68.42 Body mass index [BMI] 45.0-49.9, adult; F17.210 Nicotine dependence, cigarettes, uncomplicated; Z91.010 Allergy to peanuts
CPT/HCPCS: 99211

== ENCOUNTER → 2024-10-28 | Outpatient (CLI) | payer OTHER ==
[2024-10-28 09:53] VITALS: RESP 16; TEMP 97.7; BMI 51.0
[2024-10-28 09:55] VITALS: BP 138/93; PULSE 111
--- NOTE | 2024-10-28 10:29 | P.HPBAR ---
Bariatric H&P - History & Physicial H&P Date: 10/28/24 History & Physicial: Visit/CC: f/u Patient initial contact: Initial weight: 142.428 kg Initial weight in pounds: 314.00 Height: 5 ft 6 in Initial BMI: 50.6 Last weight: Current weight: 143.335 kg Current weight in pounds: 316.00 Current BMI: 51.0 [place] body weight (based on NIH guidelines): Excess body weight loss: The patient is a 49 year-old F who presents for Bariatric Assessment. Patient presents today for Lap-Band adjustment. She currently feels hungry. She has lo gained approximately 20 pounds since her Lap-Band had decreased volume. Past Medical History Past Medical History: Hyperlipidemia, Hypertension, Sleep Apnea/CPAP/BIPAP Additional Past Medical History / Comment(s): Sciatica. No CPAP use. History of Any Multi-Drug Resistant Organisms: None Reported Past Surgical History: Bariatric Surgery Additional Past Surgical History / Comment(s): Lap band, removal of teeth Past Anesthesia/Blood Transfusion Reactions: No Reported Reaction Additional Past Anesthesia/Blood Transfusion Reaction / Comm: Per patient - "hit s me harder than normal people" and "takes longer to wake up." Past Psychological History: Anxiety, Depression, PTSD Additional Psychological History / Comment(s): Argophobia. Smoking Status: Current every day smoker Past Alcohol Use History: None Reported Additional Past Alcohol Use History / Comment(s): Smokes 1 PPD X30 yrs. Past Drug Use History: Prescription Drug Abuse Additional Drug Use History / Comment(s): Hx Prescription Drug Abuse - Past Family History Mother Family Medical History: No Reported History Brother(s) Additional Family Medical History / Comment(s): Paronoid Schizophernia Surgical - Exam Vital Signs Temp Pulse Resp BP 97.7 F 111 H 16 138/93 10/28/24 09:47 10/28/24 09:47 10/28/24 09:47 10/28/24 09:47 - General well developed, well nourished, no distress - Eyes PERRL - ENT normal pinna - Neck no masses - Respiratory normal expansion - Cardiovascular Rhythm: regular - Abdomen Abdomen: soft, non tender Bariatric Assessment & Plan Plan: Worsening morbid obese. Patient Lap-Band was adjusted. She had 0.5 cc after the band. She will follow-up in 4 weeks. Bariatric Checklist Checklist: Plan: Checklist: EGD: 1. Hiatal hernia: 2. H. Pylori: HgbA1c: Vitamin D: Smoking: Current every day smoker Primary care physician referral: Dr. Miles Psychiatry clearance: Cardiology clearance: Sleep study: Diet journal: VTE risk score: VTE risk level: Rehab needs at discharge:
== END ==
LOC: BARWHC3 09:30
PROVIDERS: ATTEND Surgery
DX: E66.01 Morbid (severe) obesity due to excess calories (principal); F17.200 Nicotine dependence, unspecified, uncomplicated; Z91.010 Allergy to peanuts; Z68.43 Body mass index [BMI] 50.0-59.9, adult
CPT/HCPCS: 43999